=== PATIENT | female | born 1965 | race Caucasian/White ===

== ENCOUNTER → 2020-05-18 14:09 | Outpatient (BNVA) | payer SELFPAY | PROVIDERS: Family Provider Family Medicine; Visit Provider Nurse Practitioner Family | DX: Z20.828 Contact with and (suspected) exposure to other viral communicable diseases (principal) | CPT/HCPCS: 87635 ==

== ENCOUNTER 2021-10-31 10:22 | Emergency (ER) | payer SELFPAY ==
--- NOTE | 2021-10-31 10:30 | W.ED.NAVMDI ---
HPI - Nausea/Vomiting/Diarrhea General: Chief complaint: Nausea/Vomiting/Diarrhea Stated complaint: n/v Time Seen by Provider: 10/31/21 10:26 Source: patient Mode of arrival: EMS Limitations: no limitations History of Present Illness: 56-year-old female presents emergency room with a report of a fever up to 1035 for the last several days however when she arrived here temp is 98 5. EMS reported that she laughed when they picked her up and had some defecation in her clothing. She is very nonspecific with her complaints states she hurts all over that everything is wrong she reports some nausea and vomiting as well as some loose stools she denies any medication melena hematemesis coffee-ground emesis. She has been on productive cough and reports some wheezing. She reports she does have COPD. MD elicited complaint: nausea and vomiting Onset (ago): day(s) Description of vomiting: food contents and watery Description of diarrhea: lose Associated nausea: Yes Associated abdominal pain: Yes Location of pain: Epigastric Severity: moderate Exacerbating factors: none Relieving factors: none Associated symtoms: Reports cough, nausea, numbness, palpitations, rash, short of breath and syncope; Denies altered mental status, anxiety, bloating, change in vision, chest pain, diaphoresis, decreased urine output, dizziness, dysuria, epistaxis, fatigue, fecal incontinence, fevers/chills, headache(s), anorexia, malaise, myalgias, tenesmus, tinnitus or weakness Review of Systems Const: Denies: fatigue, malaise or diaphoresis Eyes: Denies: change in vision ENMT: Denies: tinnitus or epistaxis Card: Reports: palpitations and syncope; Denies: chest pain Resp: Denies: dyspnea, productive cough or non-productive cough GI: Reports: nausea; Denies: bloating or fecal incontinence : Denies: dysuria Skin/Breast: Denies: rash or pruritus Neuro: Denies: headache(s) or dizziness Psych: Denies: anxiety PFS ED PFSH: Medical History (Updated 10/31/21 @ 13:05 by Carroll Mckeon DO) COPD (chronic obstructive pulmonary disease) Social History (Updated 10/31/21 @ 13:05 by Carroll Mckeon DO) Smoking and tobacco status: former smoker Physical Exam Const: EXAM LIMITATIONS: no altered mental status GENERAL APPEARANCE: cooperative and comfortable ORIENTATION/CONSCIOUSNESS: Yes awake, Yes oriented to person, Yes oriented to place and Yes oriented to time HENMT: COMMON NORMALS: normocephalic, atraumatic, hearing grossly normal bilaterally, external ears normal, EAC's normal, TM's normal bilaterally, Normal nasal mucous membranes and turbinates present, moist oral mucous membranes and oropharynx normal HEAD & SCALP: normocephalic and atraumatic NOSE: Normal nasal mucous membranes and turbinates present EXTERNAL EAR: Yes external ears normal EXTERNAL AUDITORY CANAL: EAC's normal TYMPANIC MEMBRANE: TM's normal bilaterally Eye: COMMON NORMALS: Equal, round and reactive pupils present, EOMs intact bilaterally, conjunctivae normal and no scleral icterus CONJUNCTIVA: Yes conjunctivae normal PUPIL: Yes Equal, round and reactive pupils present Neck/C-Spine: COMMON NORMALS: full ROM, no lymphadenopathy, supple and no JVD Lymph: LYMPHATIC: no lymphadenopathy noted and no lymphedema noted Resp: AUSCULTATION: rhonchi and wheezes Cardio: COMMON NORMALS: no JVD, regular rate, regular rhythm and No murmurs present (Cardio) RATE: regular rate RHYTHM: regular rhythm GI: COMMON NORMALS: Soft to palpation and No hepatosplenomegaly present AUSCULTATION: Yes normoactive bowel sounds PALPATION: Yes Soft to palpation, No Tenderness to palpation present (GI), No Guarding due to palpation present (GI) and Yes No hepatosplenomegaly present Extremity: COMMON NORMALS: normal to inspection, capillary refill normal, no clubbing, cyanosis or edema, no calf tenderness and no pedal edema Neuro: SENSORIUM/ORIENTATION: Yes oriented to person, Yes oriented to place and Yes oriented to time Skin: COMMON NORMALS: no rashes or lesions noted GENERAL SKIN EXAM: no rashes or lesions noted Course Vital Signs: Vital signs: Vital Signs Temperature 98.5 F 10/31/21 10:33 Pulse Rate 88 10/31/21 10:33 Respiratory Rate 18 10/31/21 10:33 Blood Pressure 97/73 10/31/21 10:33 MDM - Nausea/Vomiting/Diarrhea Medical Decision Making Labs and imaging reviewed. Patient sleeping comfortably after receiving fluid she is feeling somewhat better. I think she may have some mild exacerbation of her COPD and some gastroenteritis we will put her receive some Phenergan as needed clear liquid diet give her albuterol I did not give her any steroid taper with her stomach upset I am afraid the steroid taper would actually exacerbate things return if she has problem particular if she develops fever at this time she does not have a white count or left shift or fever just observe. Medical Records I reviewed the patient's medical records. Lab Data I reviewed the patient's lab results. : 10/31/21 10:45 10/31/21 10:45 Radiology Impressions Abdomen/Pelvis CT 10/31/21 10:50 IMPRESSION: 1. No acute abnormality. 2. Fatty liver. Chest X-Ray 10/31/21 10:50 IMPRESSION: No acute findings. Laboratory Results WBC 3.3 10^3/uL (4.0-10.0) L 10/31/21 10:45 RBC 4.57 10^6/uL (4.1-5.3) 10/31/21 10:45 Hgb 14.5 g/dL (11.5-15.3) 10/31/21 10:45 Hct 42.0 % (37.0-47.0) 10/31/21 10:45 MCV 91.9 fl (81-99) 10/31/21 10:45 MCH 31.7 pg (28.0-34.0) 10/31/21 10:45 MCHC 34.5 g/dL (30.0-36.0) 10/31/21 10:45 RDW 12.1 % (12.1-15.1) 10/31/21 10:45 Plt Count 116 10^3/cmm (130-400) L 10/31/21 10:45 MPV 10.1 fL (7.4-10.4) 10/31/21 10:45 Neut % (Auto) 61.3 % 10/31/21 10:45 Lymph % (Auto) 33.5 % 10/31/21 10:45 [place] % (Auto) 4.0 % 10/31/21 10:45 Eos % (Auto) 0.0 % 10/31/21 10:45 Baso % (Auto) 0.9 % 10/31/21 10:45 Neut # (Auto) 1.99 10^3/uL (1.8-7.7) 10/31/21 10:45 Lymph # (Auto) 1.1 10^3/uL (0.8-4.8) 10/31/21 10:45 [place] # (Auto) 0.1 10^3/uL (0.2-0.9) L 10/31/21 10:45 Eos # (Auto) 0.0 10^3/uL (0.0-0.8) 10/31/21 10:45 Baso # (Auto) 0.0 10^3/uL (0.0-0.1) 10/31/21 10:45 Nucleated RBC % (auto) 0 % 10/31/21 10:45 Nucleated RBCs # 0.0 /100WBC 10/31/21 10:45 Sodium 137 mmol/L (136-145) 10/31/21 10:45 Potassium 3.6 mmol/L (3.5-5.1) 10/31/21 10:45 Chloride 100 mmol/L (98-107) 10/31/21 10:45 Carbon Dioxide 24 mmol/L (22-29) 10/31/21 10:45 Anion Gap 16.6 (5-19) 10/31/21 10:45 BUN 16 mg/dL (6-20) 10/31/21 10:45 Creatinine 1.0 mg/dL (0.5-0.9) H 10/31/21 10:45 GFR Calculation 57.6 mL/min (90-130) L 10/31/21 10:45 Glucose 125 mg/dL (65-115) H 10/31/21 10:45 Calculated Osmolality 287 mOsm/kg (285-295) 10/31/21 10:45 Lactic Acid 1.7 mmol/L (0.5-2.2) 10/31/21 10:45 Calcium 8.4 mg/dL (8.5-10.5) L 10/31/21 10:45 Total Bilirubin 0.3 mg/dL (0.15-1.2) 10/31/21 10:45 AST 91 U/L (0-32) H 10/31/21 10:45 ALT 65 U/L (0-33) H 10/31/21 10:45 Alkaline Phosphatase 127 IU/L (35-105) H 10/31/21 10:45 Total Protein 6.7 g/dL (6.6-8.7) 10/31/21 10:45 Albumin 3.8 g/dL (3.5-5.2) 10/31/21 10:45 Globulin 2.9 g/dL (1.3-4.6) 10/31/21 10:45 Lipase 20 U/L (13-60) 10/31/21 10:45 Urine Color Dark yellow (Yellow) 10/31/21 11:10 Urine Appearance Cloudy (CLEAR) 10/31/21 11:10 Urine pH 5 (5-7) 10/31/21 11:10 Ur Specific [place] 1.020 (1.005-1.030) 10/31/21 11:10 Urine Protein 1+ (Negative) H 10/31/21 11:10 Urine Glucose (UA) Norm (Normal) 10/31/21 11:10 Urine Ketones Negative (Negative) 10/31/21 11:10 Urine Blood 2+ (Negative) H 10/31/21 11:10 Urine Nitrate Negative (Negative) 10/31/21 11:10 Urine Bilirubin Neg (Negative) 10/31/21 11:10 Urine Urobilinogen 1 mg/dL (Negative) H 10/31/21 11:10 Ur Leukocyte Esterase Negative (Negative) 10/31/21 11:10 Urine RBC 0-4 /hpf (0-2) H 10/31/21 11:10 Urine WBC 0-4 /hpf (0-5) H 10/31/21 11:10 Ur Squamous Epith Cells 10-15 /hpf (0-5) H 10/31/21 11:10 Amorphous Sediment Not Reportable 10/31/21 11:10 Urine Bacteria 1+ /hpf (NONE) H 10/31/21 11:10 Urine Mucus 1+ /hpf 10/31/21 11:10 Discharge Plan Discharge Patient Disposition: Home Clinical Impression: Gastroenteritis, COPD (chronic obstructive pulmonary disease) Condition: Stable Prescriptions: New promethazine 25 mg tablet 25 mg PO Q6H PRN (Reason: nausea and vomiting) Qty: 20 0RF albuterol sulfate 90 mcg/actuation HFA aerosol inhaler 2 inh INHALATION Q4H PRN (Reason: shortness of breath or wheezing) Qty: 18 0RF Discharge Orders: Discharge ED (Routine); Ordered 10/31/21 Ordered By: Carroll Mckeon Referrals: Antonino Lindsay MD [Physician] - Discharge Diet: Clear Liquid Discharge Activity: Increase activity as tolerated Patient Instructions: Opioid Safety Activity Restrictions/Additional Instructions: Follow-up with your primary care doctor if not improving. Return if you have significant worsening. Coding Level of Care Code ED Electronic Controls Repairer Supervisor for [place] Pagan
[2021-10-31 10:33] VITALS: BP 97/73; PULSE 88; RESP 18; TEMP 36.9; BMI 26.2
[2021-10-31] MEDS: sodium chloride 0.9% 1,000 ML 999 ML IV (10:39)
--- NOTE | 2021-10-31 10:50 | XRR_ITS ---
PROCEDURE INFORMATION: Exam: XR Chest Exam date and time: 10/31/2021 10:55 AM Age: 56 years old Clinical indication: Fever and shortness of breath; Additional info: Dyspnea/cough TECHNIQUE: Imaging protocol: XR of the chest. Views: 1 view. COMPARISON: CR Chest 1 [place] [id number] 05/16/2017 11:02 PM FINDINGS: Lungs: Unremarkable. No consolidation. Pleural spaces: Unremarkable. No pleural effusion. No pneumothorax. Heart/Mediastinum: Unremarkable. No cardiomegaly. Bones/joints: Unremarkable. XR/XR chest 1V portable [id number] IMPRESSION: No acute findings.
--- NOTE | 2021-10-31 10:50 | CTR_ITS ---
PROCEDURE INFORMATION: Exam: CT Abdomen And Pelvis Without Contrast Exam date and time: 10/31/2021 11:23 AM Age: 56 years old Clinical indication: Abdominal pain; Generalized; Prior surgery; Surgery date: 6+ months; Surgery type: Partial hyster TECHNIQUE: Imaging protocol: Computed tomography of the abdomen and pelvis without contrast. Radiation optimization: All CT scans at this facility use at least one of these dose optimization techniques: automated exposure control; mA and/or kV adjustment per patient size (includes targeted exams where dose is matched to clinical indication); or iterative reconstruction. COMPARISON: CR (CHEST, ) 10/31/2021 10:55 AM RADIATION DOSE METRICS: Total DLP (mGy-cm): 870.18 FINDINGS: Liver: Fatty liver. Gallbladder and bile ducts: Normal. No calcified stones. No ductal dilation. Pancreas: Normal. No ductal dilation. Spleen: Normal. No splenomegaly. Adrenal glands: Normal. No mass. Kidneys and ureters: There are 2 benign-appearing cysts in the right kidney with the larger 1 measuring 2 cm in diameter. There is no hydronephrosis. There is no renal calculus. Stomach and bowel: Unremarkable. No obstruction. No mucosal thickening. Appendix: No evidence of appendicitis. Intraperitoneal space: There is no free fluid and no free air. Vasculature: There is mild calcification of the abdominal aorta. There is no abdominal aortic aneurysm. Lymph nodes: Unremarkable. No enlarged lymph nodes. Urinary bladder: Unremarkable as visualized. Reproductive: Hysterectomy. No pelvic masses. Bones/joints: Chronic degenerative changes are present in the spine especially at the L3-L4 level. Soft tissues: There is a small uncomplicated fat containing umbilical hernia. CT/CT abdomen pelvis con [id number] IMPRESSION: 1. No acute abnormality. 2. Fatty liver.
[2021-10-31 10:59] LABS: Basophils % 0.9 %; Hemoglobin 14.5 g/dL (11.5-15.3); Lymphocytes # 1.1 10^3/uL (0.8-4.8); Lymphocytes % 33.5 %; Mean Corpuscular HGB Conc 34.5 g/dL (30.0-36.0); Mean Corpuscular Hemoglobin 31.7 pg (28.0-34.0); Mean Corpuscular Volume 91.9 fl (81-99); Mean Platelet Volume 10.1 fL (7.4-10.4); Monocytes # 0.1 10^3/uL (0.2-0.9); Neutrophils # 1.99 10^3/uL (1.8-7.7); Neutrophils % 61.3 %; Nucleated Red Blood Cells % 0 %; Platelet Count 116 10^3/cmm (130-400); Red Blood Count 4.57 10^6/uL (4.1-5.3); Red Cell Distribution Width 12.1 % (12.1-15.1); White Blood Count 3.3 10^3/uL (4.0-10.0)
[2021-10-31 11:18] LABS: Alanine Aminotransferase 65 U/L (0-33); Albumin Level 3.8 g/dL (3.5-5.2); Alkaline Phosphatase 127 IU/L (35-105); Anion Gap 16.6 (5-19); Aspartate Amino Transferase 91 U/L (0-32); Blood Urea Nitrogen 16 mg/dL (6-20); Calcium 8.4 mg/dL (8.5-10.5); Carbon Dioxide 24 mmol/L (22-29); Chloride 100 mmol/L (98-107); Globulin 2.9 g/dL (1.3-4.6); Glomerular Filtration Rate 57.6 mL/min (90-130); Glucose 125 mg/dL (65-115); Lactic Sepsis W/Reflex 1.7 mmol/L (0.5-2.2); Lipase 20 U/L (13-60); Osmolality Calculated 287 mOsm/kg (285-295); Potassium 3.6 mmol/L (3.5-5.1); Sodium 137 mmol/L (136-145); Total Bilirubin 0.3 mg/dL (0.15-1.2); Total Protein 6.7 g/dL (6.6-8.7)
[2021-10-31 11:31] LABS: Slide Review Slide Review Perform
[2021-10-31 11:35] LABS: Add Urine Microscopic? YES; Bilirubin Urine Neg (Negative); Blood Urine 2+ (Negative); Glucose Urine UA Norm (Normal); Ketones Urine Negative (Negative); Leukocyte Esterase Urine Negative (Negative); Nitrate Urine Negative (Negative); Protein Urine 1+ (Negative); Urine Appearance Cloudy (CLEAR); Urine Color Dark Yellow (Yellow); Urobilinogen Urine 1 mg/dL (Negative); pH Urine 5 (5-7)
[2021-10-31 11:36] LABS: Add Urine Culture? No; Bacteria Urine 1+ /hpf; Mucus Urine 1+ /hpf; RBC Urine 0-4 /hpf (0-2); WBC Urine 0-4 /hpf (0-5)
[2021-10-31] MEDS: ipratropium-albuterol 3 mL Neb INHALATION (13:05)
[2021-10-31 13:06] VITALS: PULSE 88; RESP 18; O2SAT 95
== END 2021-10-31 13:32 | disposition home or self-care (01) ==
PROVIDERS: Physician Assistant; Emergency Provider Family Medicine
DX: K52.9 Noninfective gastroenteritis and colitis, unspecified (principal); J44.9 Chronic obstructive pulmonary disease, unspecified; Z87.891 Personal history of nicotine dependence
CPT/HCPCS: 71045; 74176; 80053; 81001; 83605; 83690; 85025; 94640; 96360; 99284; C1751; J7030

== ENCOUNTER 2021-12-05 16:54 | Emergency (ER) | payer SELFPAY ==
[2021-12-05 16:55] VITALS: BP 110/70; PULSE 101; RESP 20; O2SAT 96
--- NOTE | 2021-12-05 17:24 | XRR_ITS ---
PROCEDURE INFORMATION: Exam: XR Left Ribs with PA Chest Exam date and time: 12/05/2021 6:06 PM Age: 56 years old Clinical indication: Injury or trauma; Fall; Rib area, left side; Blunt trauma; Additional info: Trauma/injury TECHNIQUE: Imaging protocol: Radiologic exam of the Left ribs with PA chest. Views: 3 views COMPARISON: CR (CHEST, ) 10/31/2021 10:55 AM FINDINGS: Lungs: Unremarkable. No consolidation. Pleural spaces: Unremarkable. No pleural effusion. No pneumothorax. Heart/Mediastinum: Unremarkable. No cardiomegaly. Bones/joints: Unremarkable. XR/XR ribs LT mn 3V w CXR1V [id number] IMPRESSION: No acute findings.
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
--- NOTE | 2021-12-05 19:11 | PC.NURSE ---
REPORT GIVEN TO JESÚS MCCAULEY ASSUMED CARE.
[2021-12-05 19:27] VITALS: RESP 20
[2021-12-05] MEDS: HYDROmorphone 1 mg/mL INJ 1 mL 0.5 MG IVP (19:27)
[2021-12-05 19:34] VITALS: BP 132/100; PULSE 89; RESP 20; O2SAT 95
== END 2021-12-05 19:35 | disposition home or self-care (01) ==
PROVIDERS: Emergency Provider Physician Assistant
DX: S20.222A Contusion of left back wall of thorax, initial encounter (principal); J44.9 Chronic obstructive pulmonary disease, unspecified; Z87.891 Personal history of nicotine dependence; V87.8XXA Person injured in other specified noncollision transport accidents involving motor vehicle (traffic), initial encounter
CPT/HCPCS: 71101; 72128; 96374; 99285; J1170

== ENCOUNTER 2022-06-16 10:07 | Outpatient (CLI) | payer OTHER, SELFPAY | END 2022-06-16 10:08 | disposition home or self-care (01) | LOC: RT 10:10 | PROVIDERS: Visit Provider Emergency Medicine | DX: Z02.71 Encounter for disability determination (principal) | CPT/HCPCS: 94060; 94726; 94729; J7613 ==

== ENCOUNTER 2023-11-20 02:37 | Inpatient (IN) | payer MEDICARE, SELFPAY ==
[2023-11-20] VITALS (8 sets, daily range): BP systolic 107–146; BP diastolic 72–112; PULSE 78–110; RESP 13–18; TEMP 35.3–36.9; O2SAT 90–99; BMI 21.4
--- NOTE | 2023-11-20 02:41 | ECG_ITS ---
[facility] Test Date: 2023-11-20 Pat Name: Tiara Wilkins Department: Room: Gender: Female Cask Maker: : 1965 Requested By: Cornelius Elaine Order Number: [id number] You MD: Carter Milan M.D. Measurements Intervals [place] Rate: 80 P: 71 AR: 132 QRS: 12 QRSD: 93 T: 52 QT: 449 QTc: 520 Interpretive Statements SINUS RHYTHM WITH SINUS ARRHYTHMIA SEPTAL MYOCARDIAL INFARCTION , OF INDETERMINATE AGE [40+ ms Q WAVE IN V1/V2] No previous ECG available for comparison Electronically Signed On 11-21-2023 21:47:06 CDT by Carter Milan M.D. [email or web address]
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
[2023-11-20 02:50] LABS: Basophils # 0.1 10^3/uL (0.0-0.1); Basophils % 0.6 %; Eosinophils # 0.2 10^3/uL (0.0-0.8); Eosinophils % 1.7 %; Hematocrit 41.4 % (36-47); Lymphocytes # 6.7 10^3/uL (0.8-4.8); Lymphocytes % 48.3 %; Mean Corpuscular HGB Conc 32.6 g/dL (30-55); Mean Corpuscular Hemoglobin 31.5 pg (27-33); Mean Corpuscular Volume 96.5 fl (85-98); Mean Platelet Volume 9.1 fL (7.4-10.4); Monocytes # 1.1 10^3/uL (0.2-0.9); Monocytes % 7.8 %; Neutrophils # 5.77 10^3/uL (1.8-7.7); Neutrophils % 41.5 %; Nucleated Red Blood Cells % 0 %; Platelet Count 296 10^3/cmm (157-399); Red Blood Count 4.29 10^6/uL (3.85-5.65); Red Cell Distribution Width 12.1 % (12.1-15.1)
[2023-11-20] MEDS: sodium chloride 0.9% 1,000 ML 999 ML IV ×2 (02:54→03:21)
--- NOTE | 2023-11-20 02:54 | ED_ITS ---
Documented by User: Cornelius Elaine MD 11/20/23 04:18 HPI - General Adult 2 General: Chief complaint: Altered Mental Status Stated complaint: MHE Time Seen by Provider: 11/20/23 02:42 Source: EMS Mode of arrival: EMS Limitations: altered mental status History of Present Illness: 58-year-old female who please was called the residents and I most the history is from EMS and police they state that patient has a history of psychiatric issues she is also an alcoholic. Per EMS patient had been psychotic per her and hearing voices and was tearing up the house she does have a history of COPD as well. EMS states that they given her 2 mg Versed and 2 mg of Ativan to calm her down patient is unresponsive currently likely from the Versed she will not even arouse to sternal rubs. They just recently moved here have no medical history on her here her is not here at this time as he cannot get his truck started is here now at this time is able speak to him he states that she has been having increasing hallucinations over the last few months. He states that she has been believing that people been in their house and out to get her Review of Systems 2 General: Reports: ROS unobtainable due to mental status PFSH ED 2 PFSH: Medical History COPD (chronic obstructive pulmonary disease) Social History (System 11/20/23 @ 13:28 by Makeda De La Fuente) Smoking and tobacco/nicotine status: former use of tobacco/nicotine Physical Exam 2 Const: COMMON NORMALS: negative for patient oriented x3 HENMT: COMMON NORMALS: normocephalic and atraumatic HEAD & SCALP: n ormocephalic and atraumatic Eye: COMMON NORMALS: Equal, round and reactive pupils present and EOMs intact bilaterally PUPIL: Yes Equal, round and reactive pupils present Neck/C-Spine: COMMON NORMALS: full ROM and supple Chest: COMMONS NORMALS: normal inspection of the chest and normal palpation of entire chest wall Resp: COMMON NORMALS: normal respiratory effort, No retractions, No use of accessory muscles and clear to auscultation bilaterally AUSCULTATION: clear to auscultation bilaterally Cardio: COMMON NORMALS: regular rate, regular rhythm and No murmurs present (Cardio) RATE: regular rate RHYTHM: regular rhythm GI: COMMON NORMALS: Normal to inspection, nondistended, normoactive bowel sounds present, Soft to palpation and no masses PALPATION: Yes Soft to palpation Extremity: COMMON NORMALS: normal to inspection and full ROM Neuro: COMMON NORMALS: negative for patient oriented x3 Psych: COMMON NORMALS: negative for mental status grossly normal Skin: COMMON NORMALS: no rashes or lesions noted and no wounds GENERAL SKIN EXAM: no rashes or lesions noted Course 2 Vital Signs: Vital signs: Vital Signs Temperature 95.5 F L 11/20/23 02:38 Pulse Rate 92 11/20/23 12:03 Respiratory Rate 13 11/20/23 04:00 Blood Pressure 107/72 11/20/23 05:15 Pulse Oximetry 98 11/20/23 12:03 Oxygen Delivery Me thod Room Air 11/20/23 12:03 Oxygen Flow Rate 2 11/20/23 03:32 [facility] - General Adult Medical Records I reviewed the patient's medical records. Lab Data I reviewed the patient's lab results. 11/20/23 02:44 11/20/23 02:44 Radiology Impressions Chest X-Ray 11/20/23 02:41 IMPRESSION: No acute findings. Head CT 11/20/23 02:41 IMPRESSION: No acute intracranial abnormality. Laboratory Results WBC 13.90 10^3/uL (3.29-11.43) H 11/20/23 02:44 RBC 4.29 10^6/uL (3.85-5.65) 11/20/23 02:44 Hgb 13.50 g/dL (11.27-16.99) 11/20/23 02:44 Hct 41.4 % (36-47) 11/20/23 02:44 MCV 96.5 fl (85-98) 11/20/23 02:44 MCH 31.5 pg (27-33) 11/20/23 02:44 MCHC 32.6 g/dL (30-55) 11/20/23 02:44 RDW 12.1 % (12.1-15.1) 11/20/23 02:44 Plt Count 296 10^3/cmm (157-399) 11/20/23 02:44 MPV 9.1 fL (7.4-10.4) 11/20/23 02:44 Neut % (Auto) 41.5 % 11/20/23 02:44 Lymph % (Auto) 48.3 % 11/20/23 02:44 Luce % (Auto) 7.8 % 11/20/23 02:44 Eos % (Auto) 1.7 % 11/20/23 02:44 Baso % (Auto) 0.6 % 11/20/23 02:44 Neut # (Auto) 5.77 10^3/uL (1.8-7.7) 11/20/23 02:44 Lymph # (Auto) 6.7 10^3/uL (0.8-4.8) H 11/20/23 02:44 Luce # (Auto) 1.1 10^3/uL (0.2-0.9) H 11/20/23 02:44 Eos # (Auto) 0.2 10^3/uL (0.0-0.8) 11/20/23 02:44 Baso # (Auto) 0.1 10^3/uL (0.0-0.1) 11/20/23 02:44 Nucleated RBC % (auto) 0 % 11/20/23 02:44 Nucleated RBCs # 0.0 /100WBC 11/20/23 02:44 Specimen Type Arterial 11/20/23 03:00 Sample Site Radial, left 11/20/23 03:00 ABG pH 7.30 (7.35-7.45) L 11/20/23 03:00 ABG pCO2 47.3 mmHg (35-45) H 11/20/23 03:00 ABG pO2 62.0 mmHg (80.0-100.0) L 11/20/23 03:00 ABG HCO3 23.0 mmol/L (22-26) 11/20/23 03:00 ABG Base Excess -3.7 mmol/L (-2.0-2.0) L 11/20/23 03:00 Eric Test Pos 11/20/23 03:00 Hematocrit 38.2 % (37-47) 11/20/23 03:00 O2 Delivery Device Nc 11/20/23 03:00 O2 Liters/Min 2.0 % 11/20/23 03:00 Wireless Store Manager ID [email or web address] 11/20/23 03:00 Sodium 143 mmol/L (136-145) 11/20/23 02:44 Potassium 3.5 mmol/L (3.5-5.1) 11/20/23 02:44 Chloride 102 mmol/L (98-107) 11/20/23 02:44 Carbon Dioxide 25 mmol/L (22-29) 11/20/23 02:44 Anion Gap 19.5 (5-19) H 11/20/23 02:44 BUN 22 mg/dL (6-20) H 11/20/23 02:44 Creatinine 0.9 mg/dL (0.5-0.9) 11/20/23 02:44 GFR Calculation 64.5 mL/min (90-130) L 11/20/23 02:44 Glucose 60 mg/dL (65-115) L 11/20/23 02:44 POC Glucose 64 mg/dL (70-110) L 11/20/23 16:31 Calculated Osmolality 297 mOsm/kg (285-295) H 11/20/23 02:44 Lactic Acid 2.6 mmol/L (0.5-2.2) H 11/20/23 02:44 Lactic Acid (Sepsis) 2.2 mmol/L (0.5-2.2) 11/20/23 05:36 Calcium 9.0 mg/dL (8.5-10.5) 11/20/23 02:44 Total Bilirubin 0.4 mg/dL (0.15-1.2) 11/20/23 02:44 AST 42 U/L (0-32) H 11/20/23 02:44 ALT 24 U/L (0-33) 11/20/23 02:44 Alkaline Phosphatase 124 U/L (35-105) H 11/20/23 02:44 Ammonia 44 umol/L (11-51) 11/20/23 02:44 C-Reactive Protein 13.5 mg/L (0.0-4.9) H 11/20/23 02:44 Total Protein 7.9 g/dL (6.6-8.7) 11/20/23 02:44 Albumin 4.6 g/dL (3.5-5.2) 11/20/23 02:44 Globulin 3.3 g/dL (1.3-4.6) 11/20/23 02:44 TSH 5.61 uIU/mL (0.27-4.20) H 11/20/23 02:44 Urine Color Yellow (Yellow) 11/20/23 02:55 Urine Appearance Cloudy (CLEAR) A 11/20/23 02:55 Urine pH 5 (5-7) 11/20/23 02:55 Ur Specific [place] 1.030 (1.005-1.030) 11/20/23 02:55 Urine Protein 1+ (Negative) H 11/20/23 02:55 Urine Glucose (UA) Norm (Normal) 11/20/23 02:55 Urine Ketones Negative (Negative) 11/20/23 02:55 Urine Blood Neg (Negative) 11/20/23 02:55 Urine Nitrate Negative (Negative) 11/20/23 02:55 Urine Bilirubin Neg (Negative) 11/20/23 02:55 Urine Urobilinogen Neg mg/dL (Negative) 11/20/23 02:55 Ur Leukocyte Esterase Negative (Negative) 11/20/23 02:55 Urine RBC 0-4 /hpf (0-2) H 11/20/23 02:55 Urine WBC 0-4 /hpf (0-5) H 11/20/23 02:55 Ur Squamous Epith Cells 0-4 /hpf (0-5) H 11/20/23 02:55 Calcium Oxalate Crystal Rare /hpf 11/20/23 02:55 Amorphous Sediment Trace /hpf 11/20/23 02:55 Urine Bacteria 2+ /hpf (NONE) H 11/20/23 02:55 Hyaline Casts 15-25 /lpf H 11/20/23 02:55 Urine Mucus 1+ /hpf 11/20/23 02:55 Salicylates < 0.3 mg/dL (3-10) L 11/20/23 02:44 Urine Opiates Screen Positive ng/mL (Negative) H 11/20/23 02:55 Acetaminophen < 5.0 ug/mL (10-30) L 11/20/23 02:44 Ur Barbiturates Screen Negative ng/mL (Negative) 11/20/23 02:55 Ur Phencyclidine Scrn Negative ng/mL (Negative) 11/20/23 02:55 Ur Amphetamines Screen Positive ng/mL (Negative) H 11/20/23 02:55 U Benzodiazepines Scrn Negative ng/mL (Negative) 11/20/23 02:55 Urine Cocaine Screen Negative ng/mL (Negative) 11/20/23 02:55 U Marijuana (THC) Screen Negative ng/mL (Negative) 11/20/23 02:55 Ethyl Alcohol 185 mg/dL (0-10) H 11/20/23 02:44 Influenza Type A Ag negative (Negative) 11/20/23 03:33 Influenza Type B Ag negative (Negative) 11/20/23 03:33 RSV Antigen Negative (Negative) 11/20/23 03:33 SARS-CoV-2 Ag (Rapid) negative (Negative) 11/20/23 03:33 All radiology interpretation(s) finalized by discharge EKG Data EKG 1: I personally reviewed and interpreted this EKG as follows: EKG interpretation date: 11/20/23 EKG interpretation time: 03:42 Interpretation: nsr hr [address] or t wave abnormalities qrs 93 qtc 485 Computer generated interpretation: Chest X-Ray 11/20/23 02:41 IMPRESSION: No acute findings. Head CT 11/20/23 02:41 IMPRESSION: No acute intracranial abnormality. Discharge Plan Discharge Patient Disposition: Admitted As Inpatient Clinical Impression: Drug-induced psychotic disorder, COPD (chronic obstructive pulmonary disease) Condition: Stable Prescriptions: No Action promethazine 25 mg tablet 25 mg PO Q6H PRN (Reason: nausea and vomiting) Qty: 20 0RF albuterol sulfate 90 mcg/actuation HFA aerosol inhaler 2 inh INHALATION Q4H PRN (Reason: shortness of breath or wheezing) Qty: 18 0RF Unable to Assess Patient Instructions: Altered Mental Status (ED) Coding Level of Care Code ED Geotechnical Operating Engineer for Chg Fwd Documented by User: Carroll Mckeon DO 11/20/23 17:43 HPI - General Adult 2 General: Chief complaint: Altered Mental Status Stated complaint: MHE Time Seen by Provider: 11/20/23 02:42 PFSH ED 2 PFSH: Medical History COPD (chronic obstructive pulmonary disease) Social History (System 11/20/23 @ 13:28 by Makeda De La Fuente) Smoking and tobacco/nicotine status: former use of tobacco/nicotine Course 2 Vital Signs: Vital signs: Vital Signs Temperature 95.5 F L 11/20/23 02:38 Pulse Rate 92 11/20/23 12:03 Respiratory Rate 13 11/20/23 04:00 Blood Pressure 107/72 11/20/23 05:15 Pulse Oximetry 98 11/20/23 12:03 Oxygen Delivery Me thod Room Air 11/20/23 12:03 Oxygen Flow Rate 2 11/20/23 03:32 MDM - General Adult Medical Decision Making November 20 1519 Care assumed at change of shift we are still working on placement. Patient went to avoid straining that she had prolapse of rectum this is easily reduced. She been given Ativan prior to reducing it because of some moderate anxiety tolerated very well. Continue to work on placement. 1740 -we continue to look for placement or unable to find placement for her we have several facilities that are reviewing her chart. In the same timeframe her warehouse assistant called set a bed has become available by discharge in NPU. I discussed case Dr. Erlinda sibley after for admission. Lab Data 11/20/23 02:44 11/20/23 02:44 Radiology Impressions Chest X-Ray 11/20/23 02:41 IMPRESSION: No acute findings. Head CT 11/20/23 02:41 IMPRESSION: No acute intracranial abnormality. Laboratory Results WBC 13.90 10^3/uL (3.29-11.43) H 11/20/23 02:44 RBC 4.29 10^6/uL (3.85-5.65) 11/20/23 02:44 Hgb 13.50 g/dL (11.27-16.99) 11/20/23 02:44 Hct 41.4 % (36-47) 11/20/23 02:44 MCV 96.5 fl (85-98) 11/20/23 02:44 MCH 31.5 pg (27-33) 11/20/23 02:44 MCHC 32.6 g/dL (30-55) 11/20/23 02:44 RDW 12.1 % (12.1-15.1) 11/20/23 02:44 Plt Count 296 10^3/cmm (157-399) 11/20/23 02:44 MPV 9.1 fL (7.4-10.4) 11/20/23 02:44 Neut % (Auto) 41.5 % 11/20/23 02:44 Lymph % (Auto) 48.3 % 11/20/23 02:44 Luce % (Auto) 7.8 % 11/20/23 02:44 Eos % (Auto) 1.7 % 11/20/23 02:44 Baso % (Auto) 0.6 % 11/20/23 02:44 Neut # (Auto) 5.77 10^3/uL (1.8-7.7) 11/20/23 02:44 Lymph # (Auto) 6.7 10^3/uL (0.8-4.8) H 11/20/23 02:44 Luce # (Auto) 1.1 10^3/uL (0.2-0.9) H 11/20/23 02:44 Eos # (Auto) 0.2 10^3/uL (0.0-0.8) 11/20/23 02:44 Baso # (Auto) 0.1 10^3/uL (0.0-0.1) 11/20/23 02:44 Nucleated RBC % (auto) 0 % 11/20/23 02:44 Nucleated RBCs # 0.0 /100WBC 11/20/23 02:44 Specimen Type Arterial 11/20/23 03:00 Sample Site Radial, left 11/20/23 03:00 ABG pH 7.30 (7.35-7.45) L 11/20/23 03:00 ABG pCO2 47.3 mmHg (35-45) H 11/20/23 03:00 ABG pO2 62.0 mmHg (80.0-100.0) L 11/20/23 03:00 ABG HCO3 23.0 mmol/L (22-26) 11/20/23 03:00 ABG Base Excess -3.7 mmol/L (-2.0-2.0) L 11/20/23 03:00 Eric Test Pos 11/20/23 03:00 Hematocrit 38.2 % (37-47) 11/20/23 03:00 O2 Delivery Device Nc 11/20/23 03:00 O2 Liters/Min 2.0 % 11/20/23 03:00 Wireless Store Manager ID [email or web address] 11/20/23 03:00 Sodium 143 mmol/L (136-145) 11/20/23 02:44 Potassium 3.5 mmol/L (3.5-5.1) 11/20/23 02:44 Chloride 102 mmol/L (98-107) 11/20/23 02:44 Carbon Dioxide 25 mmol/L (22-29) 11/20/23 02:44 Anion Gap 19.5 (5-19) H 11/20/23 02:44 BUN 22 mg/dL (6-20) H 11/20/23 02:44 Creatinine 0.9 mg/dL (0.5-0.9) 11/20/23 02:44 GFR Calculation 64.5 mL/min (90-130) L 11/20/23 02:44 Glucose 60 mg/dL (65-115) L 11/20/23 02:44 POC Glucose 64 mg/dL (70-110) L 11/20/23 16:31 Calculated Osmolality 297 mOsm/kg (285-295) H 11/20/23 02:44 Lactic Acid 2.6 mmol/L (0.5-2.2) H 11/20/23 02:44 Lactic Acid (Sepsis) 2.2 mmol/L (0.5-2.2) 11/20/23 05:36 Calcium 9.0 mg/dL (8.5-10.5) 11/20/23 02:44 Total Bilirubin 0.4 mg/dL (0.15-1.2) 11/20/23 02:44 AST 42 U/L (0-32) H 11/20/23 02:44 ALT 24 U/L (0-33) 11/20/23 02:44 Alkaline Phosphatase 124 U/L (35-105) H 11/20/23 02:44 Ammonia 44 umol/L (11-51) 11/20/23 02:44 C-Reactive Protein 13.5 mg/L (0.0-4.9) H 11/20/23 02:44 Total Protein 7.9 g/dL (6.6-8.7) 11/20/23 02:44 Albumin 4.6 g/dL (3.5-5.2) 11/20/23 02:44 Globulin 3.3 g/dL (1.3-4.6) 11/20/23 02:44 TSH 5.61 uIU/mL (0.27-4.20) H 11/20/23 02:44 Urine Color Yellow (Yellow) 11/20/23 02:55 Urine Appearance Cloudy (CLEAR) A 11/20/23 02:55 Urine pH 5 (5-7) 11/20/23 02:55 Ur Specific [place] 1.030 (1.005-1.030) 11/20/23 02:55 Urine Protein 1+ (Negative) H 11/20/23 02:55 Urine Glucose (UA) Norm (Normal) 11/20/23 02:55 Urine Ketones Negative (Negative) 11/20/23 02:55 Urine Blood Neg (Negative) 11/20/23 02:55 Urine Nitrate Negative (Negative) 11/20/23 02:55 Urine Bilirubin Neg (Negative) 11/20/23 02:55 Urine Urobilinogen Neg mg/dL (Negative) 11/20/23 02:55 Ur Leukocyte Esterase Negative (Negative) 11/20/23 02:55 Urine RBC 0-4 /hpf (0-2) H 11/20/23 02:55 Urine WBC 0-4 /hpf (0-5) H 11/20/23 02:55 Ur Squamous Epith Cells 0-4 /hpf (0-5) H 11/20/23 02:55 Calcium Oxalate Crystal Rare /hpf 11/20/23 02:55 Amorphous Sediment Trace /hpf 11/20/23 02:55 Urine Bacteria 2+ /hpf (NONE) H 11/20/23 02:55 Hyaline Casts 15-25 /lpf H 11/20/23 02:55 Urine Mucus 1+ /hpf 11/20/23 02:55 Salicylates < 0.3 mg/dL (3-10) L 11/20/23 02:44 Urine Opiates Screen Positive ng/mL (Negative) H 11/20/23 02:55 Acetaminophen < 5.0 ug/mL (10-30) L 11/20/23 02:44 Ur Barbiturates Screen Negative ng/mL (Negative) 11/20/23 02:55 Ur Phencyclidine Scrn Negative ng/mL (Negative) 11/20/23 02:55 Ur Amphetamines Screen Positive ng/mL (Negative) H 11/20/23 02:55 U Benzodiazepines Scrn Negative ng/mL (Negative) 11/20/23 02:55 Urine Cocaine Screen Negative ng/mL (Negative) 11/20/23 02:55 U Marijuana (THC) Screen Negative ng/mL (Negative) 11/20/23 02:55 Ethyl Alcohol 185 mg/dL (0-10) H 11/20/23 02:44 Influenza Type A Ag negative (Negative) 11/20/23 03:33 Influenza Type B Ag negative (Negative) 11/20/23 03:33 RSV Antigen Negative (Negative) 11/20/23 03:33 SARS-CoV-2 Ag (Rapid) negative (Negative) 11/20/23 03:33 EKG Data EKG 1: Computer generated interpretation: Chest X-Ray 11/20/23 02:41 IMPRESSION: No acute findings. Head CT 11/20/23 02:41 IMPRESSION: No acute intracranial abnormality. Discharge Plan Discharge Patient Disposition: Admitted As Inpatient Clinical Impression: Drug-induced psychotic disorder, COPD (chronic obstructive pulmonary disease) Condition: Stable Prescriptions: No Action promethazine 25 mg tablet 25 mg PO Q6H PRN (Reason: nausea and vomiting) Qty: 20 0RF albuterol sulfate 90 mcg/actuation HFA aerosol inhaler 2 inh INHALATION Q4H PRN (Reason: shortness of breath or wheezing) Qty: 18 0RF Unable to Assess Patient Instructions: Altered Mental Status (ED) Coding Level of Care Code ED Geotechnical Operating Engineer for [place]
[2023-11-20 03:11] LABS: ABG PCO2 47.3 mmHg (35-45); Arterial Blood Gas Hematocrit 38.2 % (37-47); Base Excess ABG -3.7 mmol/L (-2.0-2.0); Blood Gas Allen Test Pos; Blood Gas Sample Site Radial, left; Blood Gas Sample Type Arterial; Oxygen Device NC
[2023-11-20 03:12] LABS: Amphetamines Screen Urine Positive (Negative); Barbiturates Screen Urine Negative (Negative); Benzodiazepines Screen Urine Negative (Negative); Cocaine Screen Urine Negative (Negative); Opiate Screen Urine Positive (Negative); PCP Screen Urine Negative (Negative); THC Screen Urine Negative (Negative)
[2023-11-20 03:12] LABS: Ammonia 44 umol/L (11-51)
[2023-11-20 03:13] LABS: Add Urine Microscopic? YES; Bacteria Urine 2+ /hpf; Bilirubin Urine Neg (Negative); Blood Urine Neg (Negative); Glucose Urine UA Norm (Normal); Ketones Urine Negative (Negative); Leukocyte Esterase Urine Negative (Negative); Mucus Urine 1+ /hpf; Nitrate Urine Negative (Negative); Protein Urine 1+ (Negative); RBC Urine 0-4 /hpf (0-2); Squamous Epithelial Cell Urine 0-4 /hpf (0-5); Urine Appearance Cloudy (CLEAR); Urine Color Yellow (Yellow); Urobilinogen Urine Neg (Negative); WBC Urine 0-4 /hpf (0-5); pH Urine 5 (5-7)
[2023-11-20 03:13] LABS: Lactic Sepsis W/Reflex 2.6 mmol/L (0.5-2.2)
[2023-11-20 03:14] LABS: Amorphous Sediment Urine TRACE /hpf; Calcium Oxalate Crystals Urine RARE /hpf; Hyaline Casts Urine 15-25 /lpf
[2023-11-20 03:15] LABS: C Reactive Protein 13.5 mg/L (0.0-4.9)
[2023-11-20 03:21] LABS: Glucose Point of Care 59 mg/dL (70-110)
[2023-11-20 03:22] LABS: Alanine Aminotransferase 24 U/L (0-33); Albumin Level 4.6 g/dL (3.5-5.2); Alcohol Level 185 mg/dL (0-10); Alkaline Phosphatase 124 U/L (35-105); Anion Gap 19.5 (5-19); Aspartate Amino Transferase 42 U/L (0-32); Blood Urea Nitrogen 22 mg/dL (6-20); Carbon Dioxide 25 mmol/L (22-29); Chloride 102 mmol/L (98-107); Creatinine Clr Calc Pharmacy 51.4514; Globulin 3.3 g/dL (1.3-4.6); Glomerular Filtration Rate 64.5 mL/min (90-130); Glucose 60 mg/dL (65-115); Osmolality Calculated 297 mOsm/kg (285-295); Potassium 3.5 mmol/L (3.5-5.1); Sodium 143 mmol/L (136-145); Thyroid Stimulating Hormone 5.61 uIU/mL (0.27-4.20); Total Bilirubin 0.4 mg/dL (0.15-1.2); Total Protein 7.9 g/dL (6.6-8.7)
[2023-11-20 03:23] LABS: Acetaminophen < 5.0 ug/mL (10-30); Salicylate < 0.3 mg/dL (3-10)
[2023-11-20] MEDS: dextrose 10% 250 ML 1000 ML IV (03:26)
[2023-11-20 04:01] LABS: SARS Covid-2 Antigen negative (Negative)
[2023-11-20 04:03] LABS: RSV Transfer Patient (ED) Negative (Negative)
[2023-11-20 04:03] LABS: Glucose Point of Care 195 mg/dL (70-110)
[2023-11-20 04:17] LABS: Influenza A by IFA negative (Negative); Influenza B by IFA negative (Negative)
[2023-11-20 04:45] LABS: Reflex Lactate Order REFLEX LACTIC ORDERD
[2023-11-20 05:12] LABS: Glucose Point of Care 87 mg/dL (70-110)
[2023-11-20 05:41] LABS: Glucose Point of Care 82 mg/dL (70-110)
[2023-11-20 05:56] LABS: Lactic Acid level (Lactate) 2.2 mmol/L (0.5-2.2)
--- NOTE | 2023-11-20 07:38 | PC.NURSE ---
Rounding Patient is resting in bed with eyes closed. No signs of distress noted at this time. PSA has eyes on patient.
[2023-11-20 08:44] LABS: Glucose Point of Care 71 mg/dL (70-110)
[2023-11-20 08:44] LABS: Glucose Point of Care 64 mg/dL (70-110)
--- NOTE | 2023-11-20 08:44 | PC.NURSE ---
BLOOD SUGAR 71. PT REFUSES TO DRINK OR EAT
--- NOTE | 2023-11-20 09:37 | PC.PHAR ---
PT STATES TAKES MEDICATIONS BUT CAN'T TELL ME WHICH PHARMACY SHE USES.
[2023-11-20] MEDS: LORazepam 2 mg/mL INJ 10 mL MDV IVP (11:07)
[2023-11-20 11:09] LABS: Glucose Point of Care 73 mg/dL (70-110)
--- NOTE | 2023-11-20 11:34 | PC.NURSE ---
pt pulled out both IVs, pt will not listen to staff. pt throwing herself around in bed. pt went to bathroom on bedside commode, pt stated my rectum just fell out. nurse notified provider.
[2023-11-20 13:40] LABS: Glucose Point of Care 70 mg/dL (70-110)
[2023-11-20 16:45] LABS: Glucose Point of Care 64 mg/dL (70-110)
--- NOTE | 2023-11-20 16:59 | PC.NURSE ---
PT BLOOD SUGAR 64. PT REFUSING TO EAT OR DRINK.
[2023-11-20] MEDS: haloperidol inj 5 mg/mL INJ 1 mL IM (19:53)
[2023-11-20 19:58] LABS: Glucose Point of Care 71 mg/dL (70-110)
--- NOTE | 2023-11-20 20:03 | PC.NURSE ---
Obtained last glucose, results relayed to Dr Elaine.
[2023-11-20 21:40] LABS: Glucose Point of Care 89 mg/dL (70-110)
--- NOTE | 2023-11-20 21:44 | PC.NURSE ---
Report called to Cele MCCAULEY in NPU. All questions and concerns were addressed at time of report.
--- NOTE | 2023-11-20 22:03 | PC.NURSE ---
At time of transfer to NPU patient was drowsy but responsive to questions and commands, such as to stand and pivot to bed. Patient was transferred with all paperwork and belongings.
[2023-11-20 22:05] LABS: Glucose Point of Care 89 mg/dL (70-110)
[2023-11-21] VITALS: BP 131/88; PULSE 101; RESP 18; TEMP 36.4; O2SAT 95
[2023-11-21 00:17] LABS: Glucose Point of Care 78 mg/dL (70-110)
[2023-11-21 00:56] LABS: Glucose Point of Care 119 mg/dL (70-110)
[2023-11-21] MEDS: ibuprofen 600 mg Tablet PO (03:41)
[2023-11-21 04:00] VITALS: BP 138/87; PULSE 98; RESP 16; TEMP 36.1; O2SAT 97
[2023-11-21 08:00] VITALS: BP 128/87; PULSE 87; RESP 16; O2SAT 97
--- NOTE | 2023-11-21 08:40 | P.NPUHP_ITS ---
Providers/Chief Complaint 2 Admitting Physician: Paulino Perez MD Chief Complaint: MHE HPI NPU History of Present Illness Tiara Wilkins is a 58 year old female who presented to the emergency department after the police in the emergency medical response team had been contacted to the patient's home. The patient had been apparently rummaging through her house and was extremely agitated and according to the was hearing voices. The patient had received Versed and Ativan in order to calm her down and quickly became unresponsive at which point the patient was transferred to the emergency department. The patient was admitted to the neuropsychiatric unit for further evaluation and treatment. Prior to arriving on the inpatient psychiatric unit, patient had struggled with oral intake and required the addition of IV fluids. The patient had reported that she was not hearing voices but states that she had been concerned that people were in her home and were somehow attempting to harm her. She was unable to provide any significant details regarding this matter. She denied depressed mood. She denied having thoughts of hurting herself or others. The patient had a blood alcohol level of 185 and reported routine use of alcohol for an unspecified number of years. She had minimized any history of substance abuse issues. She had denied amphetamine use despite the presence of amphetamine on drug screen stating that it was from her albuterol inhaler use. Inpatient psychiatric history: She reports 1 recent hospitalization in [facility] [place] for unspecified reasons. Outpatient psychiatric history: None reported Substance abuse history: None reported, She had minimized any history of alcohol withdrawal symptoms. Medical history: COPD, lower back pain Surgical history: None Medications: Albuterol sulfate Legal history: None reported history: None Family psychiatric history: Unknown Social history: She was born in [facility] and raised by both her biological parents. She reports that she dropped out of school in the eighth grade and denied any history of learning disabilities. She denied any history of physical sexual or emotional abuse. She reports that she has been to her of 32 years. She reports that she has 4 adult age children 1 of whom lives with her currently. Meds NPU Home Medications Medication Instructions Recorded Confirmed Last Taken Type albuterol sulfate 90 mcg/actuation 2 inh inhalation Q4H PRN shortness 10/31/21 Unknown Rx aerosol inhaler of breath or wheezing #18 grams promethazine 25 mg tablet 25 mg PO Q6H PRN nausea and 10/31/21 Unknown Rx vomiting #20 tabs Unable to Assess 11/20/23 11/20/23 Unknown History Allergies Allergy/AdvReac Type Severity Reaction Status Date / Time strawberry Allergy ALGOma-Hives Verified 11/20/23 13:28 PFSH NPU 2 PFSH: Medical History COPD (chronic obstructive pulmonary disease) Social History (System 11/20/23 @ 13:28 by Makeda De La Fuente) Smoking and tobacco/nicotine status: former use of tobacco/nicotine Mental Status Exam 2 MSE Comments: Patient is an extremely poor historian. She is a thin white female who looks much older than her stated age with extremely poor hygiene. Her dentition was poor. Her gait was not tested. She had her eyes closed and was fading in and out of consciousness throughout the interview. She was alert and oriented to person place year month and day of the week. Her mood was described as tired. Her affect was odd. Her thought process was superficially linear and logical. Her thought content showed no evidence of homicidal or suicidal ideation. She did at times appear somewhat guarded and paranoid stating that people are in her house trying to harm her. She did not appear to be responding to internal stimuli. There was clear evidence of bizarre delusions. Her insight is feeble. Her judgment is impaired. Her impulse control appeared poor. Her attention and concentration were also poor. Vitals/I&O/Wt Last Vital Signs Temp 97.0 F L 11/21/23 04:00 Pulse 98 11/21/23 04:00 Resp 16 11/21/23 04:00 BP 138/87 11/21/23 04:00 Pulse Ox 97 11/21/23 04:00 O2 Del Method Room Air 11/21/23 04:00 O2 Flow Rate 2 11/20/23 18:27 Weight last 48 hrs Weight 49.895 kg Data NPU 11/20/23 02:44 11/20/23 02:44 Micro: Microbiology 11/20/23 03:09 Blood Culture - Preliminary Blood NEGATIVE TO DATE 11/20/23 03:06 Blood Culture - Preliminary Blood NEGATIVE TO DATE Microbiology 11/20/23 03:09 Blood Blood Culture - Preliminary NEGATIVE TO DATE 11/20/23 03:06 Blood Blood Culture - Preliminary NEGATIVE TO DATE A&P Assessment and plan (1) Drug-induced psychotic disorder: (2) COPD (chronic obstructive pulmonary disease): Plan 58-year-old female with history of alcohol abuse along with 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 #1.? Engage patient in individual milieu and group therapy.? #2? Encourage sober living treatment after discharge at the highest level of care to which he is willing to commit. #3??? CIWA for alcohol withdrawal #4?? TO-15 minute checks? #5?? Will attempt to gather collateral information; restart outpatient medications. Monitor blood sugar, if continued problems with oral intake, may require medical consult. Attestations NPU 2 Medical Necessity Statement*: Inpatient hospitalization is medically necessary and deemed to ?be ?the clinically appropriate intervention ?at this time.? We will monitor/initiate medications and make changes as indicated.? The patient will be in the hospital for over 2 midnights.? The patient?s likely length of stay 7-10 days. Coding Level of Care Code Acute Code for g Fwd Diagnoses Drug-induced psychotic disorder F19.959 COPD (chronic obstructive pulmonary disease) J44.9
[2023-11-21 09:11] LABS: Glucose Point of Care 80 mg/dL (70-110)
--- NOTE | 2023-11-21 09:30 | PC.OT ---
OT EVALUATION ATTEMPTED; PATIENT IS SLEEPING SOUNDLY AND DOES NOT AWAKEN; NURSING AWARE. WILL ATTEMPT EVALUATION AGAIN AT A LATER TIME
[2023-11-21 11:48] VITALS: BP 126/91; PULSE 97; RESP 16; O2SAT 98
[2023-11-21 11:49] LABS: Glucose Point of Care 80 mg/dL (70-110)
--- NOTE | 2023-11-21 12:40 | PC.NURSE ---
This RN spoke with patient's primary provider, Roma, at [facility] in [place] about patient's medical history since patient is unable to provide any information at this time. She stated that the patient has had a longstanding history of methamphetamine abuse, but that the patient has refused any kind of help and denies having an abuse problem. Patient's stated that she would test positive because of a medication that she was prescribed from the aforementioned clinic, but none would cause this. It was confirmed that the only medications patient has been prescribed is abreztri, albuterol, stool softener, claritin, lexapro, trazodone, and buspar. Roma did state that patient was prescribed diclofenac, flexeril, and prednisone at one time for spondylosis and narrowing from the L3 to L4 vertabrae as well as issues with disks in her back. This information was relayed to Dr. Perez who requested all medications be for the time being.
--- NOTE | 2023-11-21 13:15 | PC.NURSE ---
Attempted to perform assessment multiple times this morning and afternoon, but unable to do so. Patient would only rouse to touch and would say only a few words at a time. She did begin to cry and say she wanted her , but then went back to sleep. Unable to get any information from the patient at this time. Assessed the patient visually to the best of my ability.
[2023-11-21 15:11] LABS: Glucose Point of Care 87 mg/dL (70-110)
--- NOTE | 2023-11-21 15:43 | XRR_ITS ---
PROCEDURE INFORMATION: Exam: XR Left Wrist Exam date and time: 11/21/2023 4:03 PM Age: 58 years old Clinical indication: Pain; Wrist; Left; Additional info: Swelling to left wrist TECHNIQUE: Imaging protocol: Radiologic exam of the left wrist. Views: 3 or more views. COMPARISON: CR XR hand LT min 3V* [id number] 11/21/2023 4:03 PM FINDINGS: Bones/joints: Moderate osteoarthritis 1st carpometacarpal joint . Mild osteoarthritis radiocarpal joint. No acute fracture, dislocation, or aggressive osseous lesion. Soft tissues: No acute soft tissue findings. XR/XR wrist LT min 3V* [id number] IMPRESSION: No acute skeletal pathology.
--- NOTE | 2023-11-21 15:43 | XRR_ITS ---
PROCEDURE INFORMATION: Exam: XR Left Hand Exam date and time: 11/21/2023 4:03 PM Age: 58 years old Clinical indication: Pain; Hand; Left; Additional info: Swelling to left thumb TECHNIQUE: Imaging protocol: Radiologic exam of the left hand. Views: 3 or more views. COMPARISON: CR XR wrist LT min 3V* [id number] 11/21/2023 4:03 PM FINDINGS: Bones/joints: Moderate osteoarthritis 1st carpometacarpal joint. Mild osteoarthritis throughout the distal interphalangeal joints. Mild osteoarthritis in the radiocarpal joint. No acute fracture, dislocation, or aggressive osseous lesion. Soft tissues: Mild to moderate swelling at the wrist and hand. XR/XR hand LT min 3V* [id number] IMPRESSION: Mild to moderate swelling at the wrist and hand.
--- NOTE | 2023-11-21 15:47 | PC.NURSE ---
HERE TO VISIT PT AT 1500. PT WAS INFORMED THAT HER WAS HERE TO VISIT. PT WOULD NOT RESPOND TO RN AND RADIO DISC JOCKEY. PT DID NOT AROUSE TO VERBAL STIMULI BUT DID AROUSE TO SLIGHT RUB ON STERNUM. PT WOKE UP AND SAID HEY WHAT'S GOING ON. RN INFORMED PT THAT IS HERE TO VISIT AND HE CAN NOT COME TO THE ROOM PER NPU POLICY, SO IN ORDER TO VISIT SHE NEEDS TO WALK DOWN TO DAY ROOM TO VISIT. PT ATTEMPTED TO GET UP AND WAS ASSISTED BY RADIO DISC JOCKEY, PT WAS OBSERVED TO BE UNSTEADY ON FEET, RADIO DISC JOCKEY ASSISTED PT TO THE DAY ROOM WITH RN BEHIND PT IN CASE PT STUMBLED. PT WAS OBSERVED TO HAVE EXCESSIVE AMOUNT OF PERSPIRATION THAT SOAKED THROUGH PTS SCRUBS. RN ASKED STAFF TO OBTAIN BLOOD GLUCOSE. BLOOD GLUCOSE WAS 87. PT WAS THEN GIVEN AN ICEY, JUICE AND GRANOLA BAR. PT DRANK APPROXIMATELY 80 MLS OF JUICE AND ONE BITE OF GRANOLA BAR. WHEN WENT TO LEAVE UNIT HE ASKED TO SPEAK TO HER RN. PTS RN WAS ON BREAK SO THIS RN WENT TO SPEAK WITH . STATES PT HAS A BIG BUMP ON HER WRISTS AND IT LOOKS BAD. THAT ER WAS ROUGH WITH HER AND I WANT THE NURSE TO BE AWARE SO THEY CAN LOOK AT IT. I JUST NEED SOMEONE TO BE AWARE. RN ASSURED THAT THIS RN WOULD GO AND ASSESS PT AND PT WRISTS/HAND. RN WENT TO ASSESS PT ARMS/WRISTS/HANDS. RN OBSERVED DISCOLORATION TO LEFT THUMB WITH A SMALL KNOT ON THE TOP OF THUMB AREA THAT EXTENDS UP TO THE WRIST, PT STATES SHE CAN NOT MOVE HER THUMB. PT ATTEMPTED AND RN COULD NOT SEE ANY MOVEMENT. PT WAS ASKED PAIN LEVEL. PT STATES IT JUST HURTS. PT WAS UNABLE TO GIVE PAIN LEVEL.RN OFFERED PT TYLENOL BUT CLOSED EYES AND DID NOT RESPOND. NOTIFIED DR. VELAZCO OF SITUATION AND PTS LEFT HAND/THRUM/WRIST. NEW ORDERS RECEIVED TO OBTAIN XRAY OF LEFT HAND THREE VIEW AND LEFT WRIST THREE VIEW. XRAYS COMPLETED AT 1610. PT SLEPT THROUGH ALL THE X-RAYS. PT IS OBSERVED TO BE RESTING IN BED WITH EYES CLOSED WITH NO S/S OF DISTRESS OR DISCOMFORT. BASKETBALL ASSEMBLER OBTAINED VITALS AND ARE FOLLOWS: HR 90,RR 15, BP 117/75 AND SPO2 97% ON RA. SUPERVISOR PAPER TESTING WAS NOTIFIED WELL NPU SECURITY ANALYST.
[2023-11-21 16:00] VITALS: BP 117/75; PULSE 90; RESP 15; O2SAT 97
--- NOTE | 2023-11-21 16:46 | PC.NURSE ---
At approximately 0725 patient's , Eduardo Wilkins, called the unit and asked this nurse if the patient was admitted to our unit. Her was not listed on her HIPAA paperwork, so this nurse asked her if we could let him know that she was here. Patient nodded her head in agreement. The patient's then began yelling at this RN that he wanted the patient seen on a medical floor, not a psych floor. This RN remembered that in the reports that it stated the had said the patient was having hallucinations. Upon mentioning this the said she was, but that it was from her back pain. He then began yelling that he was coming to get her and take her elsewhere. When this RN told him she was on a 96 hour hold, he interrupted and yelled, I don't give a fuck what she's on, I'm coming and fucking getting her! Security (Davonte), warehouse hand (Dianne), and nurse account support manager (Hui), were all notified.
[2023-11-21] MEDS: ondansetron 4 MG Tablet PO (17:14)
[2023-11-21 20:00] VITALS: BP 129/89; PULSE 94; RESP 15; TEMP 36.9; O2SAT 95
[2023-11-21 20:41] LABS: Glucose Point of Care 98 mg/dL (70-110)
[2023-11-22] VITALS: BP 120/85; PULSE 99; RESP 12; O2SAT 96
[2023-11-22 00:09] LABS: Glucose Point of Care 102 mg/dL (70-110)
[2023-11-22 04:00] VITALS: BP 121/88; PULSE 97; RESP 13; O2SAT 98
[2023-11-22 08:00] VITALS: BP 107/64; PULSE 88; RESP 17; O2SAT 96
--- NOTE | 2023-11-22 08:22 | PC.NURSE ---
Addendum entered by Lorena Howell RN 11/22/23 09:43: SPOKE WITH PHYSICIAN ABOUT PT CURRENT UNWILLINGNESS TO EAT. PHYSICIAN ORDERED NEON ELECTRICIAN CONSULT AND DIETARY SUPPLEMENTS WITH MEALS. Original Note: PT WAS UNWILLING TO EAT BREAKFAST THIS MORNING. IT HAS BEEN REPORTED TO THIS NURSE THAT PT HAS BEEN REFUSING TO EAT THROUGHOUT STAY RESULTING IN LOW BLOOD GLUCOSE. WITH THIS CONCERN IN MIND THIS NURSE PREPARED A SUPPLEMENT SHAKE AND ADDED SOME ICE-CREAM TO THE SHAKE TO MAKE IT MORE PALATABLE. PT WAS MORE THAT WILLING TO DRINK THIS AND FINISHED THIS SHAKE AND STATED I JUST NEVER FEEL LIKE EATING MUCH. PT CURRENT NEEDS ARE MET AT THIS TIME.
--- NOTE | 2023-11-22 09:42 | PC.NURSE ---
PT CURRENTLY DENIES SI/HI/AH/VH. PT CURRENTLY DENIES ANXIETY. PT ENDORSES DEPRESSION HOWEVER, IS UNABLE TO RATE IT. PT BECAME TEARFUL AFTER LEARNING TODAY'S DATE DUE TO A FAMILY BIRTHDAY. PT AFFECT APPEARS VERY DEPRESSED AND SAD. PT WAS UNSURE ABOUT THE DATE. PT DOES CONTINUE TO APPEAR LETHARGIC HOWEVER IS MORE ARROUSABLE TO VERBAL STIMULI. PT WAS COOPERATIVE WITH ASSESSMENT AND ONLY SCORED A 1 ON THE CIWA ASSESSMENT. PT CURRENT NEEDS ARE MET AT THIS TIME.
[2023-11-22 12:00] VITALS: BP 126/84; PULSE 111; RESP 17; O2SAT 98
[2023-11-22 16:00] VITALS: BP 101/64; PULSE 97; RESP 17; O2SAT 97
--- NOTE | 2023-11-22 17:01 | P.NPUPN_ITS ---
Subjective NPU 2 Subjective: 58-year-old female with a history of alc ohol abuse and possible methamphetamine abuse admitted positive for amphetamines and alcohol with significant bizarre behavior including increased paranoia and auditory hallucinations. Patient had not been eating on the unit at all without significant prompting. She had tolerated oral Ensure but did not eat independently. She had stated that she wished to go home and appeared agitated when informed that she needed to be able to maintain self-care at minimum in order to leave here. Patient had continued to deny having used amphetamines stating that it was a positive test for her use of albuterol on a daily basis. The patient reported that she had been using alcohol. She had minimized any history of alcohol-related withdrawal. Patient had reported repeatedly that she had a lack of appetite and reported that if she ate 3 meals a day that she would become fat . Mental Status Exam 2 MSE Comments: Patient is an extremely poor historian. She is a thin white female who looks much older than her stated age with extremely poor hygiene. Her dentition was poor. Her gait was not tested. She was alert and oriented to person, place and time. The patient reports her mood as fine. Her affect was subdued and odd. Her thought process was perseverative about wanting to go home. Her thought content showed no evidence of homicidal or suicidal ideation. She did at times appear somewhat guarded and paranoid stating that people are in her house trying to harm her. She did not appear to be responding to internal stimuli. There was clear evidence of bizarre delusions. Her insight is feeble. Her judgment is impaired. Her impulse control appeared poor. Her attention and concentration were also poor. 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 #1.? Engage patient in individual milieu and group therapy.? #2? Encourage sober living treatment after discharge at the highest level of care to which he is willing to commit. #3??? CIWA for alcohol withdrawal #4?? TO-15 minute checks? #5?? Appreciate medical consult. Patient will be more closely with I/O's. Attestations NPU 2 Medical Necessity Statement*: Inpatient hospitalization is medically necessary and deemed to ?be ?the clinically appropriate intervention ?at this time.? We will monitor/initiate medications and make changes as indicated.? The patient?s likely length of stay 7-10 days. Coding Level of Care Code [facility] Diagnoses Drug-induced psychotic disorder F19.959 COPD (chronic obstructive pulmonary disease) J44.9
[2023-11-22 17:10] LABS: Glucose Point of Care 100 mg/dL (70-110)
[2023-11-22 20:00] VITALS: BP 114/78; PULSE 92; RESP 16; TEMP 36.8; O2SAT 95
--- NOTE | 2023-11-22 20:20 | PC.NURSE ---
ALTERCATION WITH PT while at the nursing station a gentleman came to the desk inquiring after his that was to go to room 271, the was notified that patient was not on the floor yet. The was seen going to the waiting area to sit down. This technical publications writer approached the and informed him that despite being on the medical floor, the rules for psychiatric patients would still apply which include visiting hours only from [id number]. The stated that he had been informed by someone on the phone that he could visit with her and stay until 2100 while on this floor. This technical publications writer apologized for the misunderstanding and reinforced that he would be able to come back tomorrow and visit during the designated visiting hour. The became agitated and verbally aggressive, raising his voice and stating This is bullshit! I have been lied to every day that she has been here about one thing or another. I was told yesterday I could come get her, showed up only to be told she can't leave. I need to see her. This technical publications writer reiterated apologetically that unfortunately he would have to come back tomorrow, and that his frustration was understood considering his stated situation. The became even louder in response stating This isn't frustrated, but if I don't see her things are going to get a lot worse than frustrated. If you think this is anything just wait for her. She is going to flip out when she gets up here and can't see me. This technical publications writer apologized again, and said that the floor staff would explain the situation to the patient as well and address any situations as they unfold. The was informed that his continued anger and agitation was not acceptable and that security was being called for the safety of everyone involved. The stated that he was leaving but would be back soon with law enforcement to get her out despite being repeatedly informed that she was on a 96 hour hold and would not be released to him. The was still cursing loudly as he got onto the elevator and as the doors were closing the hit the wall inside the elevator. Security was exiting the other elevator at the same time and was informed that the had just went down the other elevator. Security quickly went down the nearby stairs to intercept him, ensuring his departure from the building and escorted him out of the facility safely.
[2023-11-22] MEDS: sucralfate 1 gm Tablet PO (21:04)
[2023-11-22] MEDS: sodium chloride 0.9% 1,000 ML 75 ML IV (21:05)
[2023-11-22] MEDS: trazodone 50 mg Tablet PO (21:05)
[2023-11-23] VITALS: BP 98/63; PULSE 91; RESP 16; TEMP 36.5; O2SAT 99
[2023-11-23 04:00] VITALS: BP 134/85; PULSE 97; RESP 17; TEMP 36.6; O2SAT 95
[2023-11-23 05:55] LABS: Basophils % 0.6 %; Eosinophils # 0.2 10^3/uL (0.0-0.8); Eosinophils % 2.6 %; Hematocrit 39.1 % (36-47); Lymphocytes # 2.3 10^3/uL (0.8-4.8); Lymphocytes % 34.7 %; Mean Corpuscular HGB Conc 33.2 g/dL (30-55); Mean Corpuscular Volume 96.3 fl (85-98); Mean Platelet Volume 9.1 fL (7.4-10.4); Monocytes # 0.6 10^3/uL (0.2-0.9); Monocytes % 8.8 %; Nucleated Red Blood Cells % 0 %; Platelet Count 261 10^3/cmm (157-399); Red Blood Count 4.06 10^6/uL (3.85-5.65); Red Cell Distribution Width 12.2 % (12.1-15.1)
[2023-11-23 06:16] LABS: Anion Gap 13.5 (5-19); Blood Urea Nitrogen 20 mg/dL (6-20); Calcium 8.3 mg/dL (8.5-10.5); Carbon Dioxide 27 mmol/L (22-29); Chloride 104 mmol/L (98-107); Creatinine Clr Calc Pharmacy 77.1771; Glucose 109 mg/dL (65-115); Osmolality Calculated 295 mOsm/kg (285-295); Potassium 3.5 mmol/L (3.5-5.1); Sodium 141 mmol/L (136-145)
[2023-11-23 06:19] LABS: Free T4 Free Thyroxine 0.81 ng/dL (0.82-1.77)
[2023-11-23] MEDS: levoFLOXacin 750 mg Tablet PO (06:36)
[2023-11-23] MEDS: sucralfate 1 gm Tablet PO ×4 (06:36→20:25)
[2023-11-23 07:22] VITALS: BP 113/71; PULSE 90; RESP 17; TEMP 36.6; O2SAT 91
[2023-11-23] MEDS: OLANZapine 5 mg ODT PO (07:48)
[2023-11-23] MEDS: sodium chloride 0.9% 1,000 ML 75 ML IV ×2 (09:53→21:46)
[2023-11-23] MEDS: pantoprazole 40 mg SDV IVP ×2 (09:53→17:51)
--- NOTE | 2023-11-23 10:14 | P.CONIM_ITS ---
Providers/Reason For Consult 2 Consulting Physician/Specialty*: Hospitalist Reason for Consult*: Poor p.o. intake Attending Physician: Paulino Perez MD History of Present Illness History of Present Illness Tiara Wilkins is a 58 year old female who has been admitted to the psych unit for positive drug screen, she found naked in her home, she tested positive for methamphetamine, I was consulted to evaluate the patient because she has not been eating and looks dehydrated. I recommended transfer to [facility] and start IV fluids, on 11/22 patient ate most of her breakfast, she is asking consistent that she wants to go home and enjoy November 22 with her , during my interaction she is not delusional or psychotic, she seems very desperate to go home She is answering most of my questions Signs of dehydration present but improving Hemodynamically stable Seems to have hypothyroidism she has been started on low-dose levothyroxine Patient is stating that she was to eat to her failed because then she gets nauseous and vomit, she is endorsing her symptoms to GERD she does not have any signs of dysphagia Review of Systems 2 Const: Denies: fever(s) Eyes: Denies: change in vision ENMT: Denies: throat pain Card: Denies: chest pain Resp: Denies: dyspnea Medications/Allergies Home Medications Medication Instructions Recorded Confirmed Last Taken Type albuterol sulfate 90 mcg/actuation 2 inh inhalation Q4H PRN shortness 10/31/21 Unknown Rx aerosol inhaler of breath or wheezing #18 grams promethazine 25 mg tablet 25 mg PO Q6H PRN nausea and 10/31/21 Unknown Rx vomiting #20 tabs Unable to Assess 11/20/23 11/20/23 Unknown History Allergies Allergy/AdvReac Type Severity Reaction Status Date / Time strawberry Allergy ALGY-Hives Verified 11/20/23 13:28 Current Medications Generic Name Dose Route Start Last Admin Trade Name Freq PRN Reason Stop Dose Admin Dextrose 250 mls @ 1,000 mls/hr 11/20/23 03:12 11/20/23 03:42 D10w IV Infused PRN PRN Infusion HYPOGLYCEMIA Ibuprofen 600 mg 11/20/23 22:07 11/21/23 03:41 Ibuprofen 600 Mg Tablet PO 600 mg Q6H PRN Administration MODERATE PAIN Ondansetron HCl 4 mg 11/20/23 22:07 11/21/23 17:14 Ondansetron 4 Mg Tablet PO 4 mg Q6H PRN Administration NAUSEA AND VOMITING PFSH Acute 2 PFSH: Medical History COPD (chronic obstructive pulmonary disease) Social History Smoking and tobacco/nicotine status: former use of tobacco/nicotine Vitals/I&O/Wt Last Vital Signs Temp 98.4 F 11/21/23 20:00 Pulse 111 H 11/22/23 12:00 Resp 17 11/22/23 12:00 BP 126/84 11/22/23 12:00 Pulse Ox 98 11/22/23 12:00 O2 Del Method Room Air 11/22/23 04:00 O2 Flow Rate 2 11/20/23 18:27 11/22/23 11/22/23 11/22/23 06:59 14:59 22:59 Intake Total 710 / 710 Balance 710 / 710 Physical Exam 2 Narrative: Signs of dehydration present Hemodynamically stable Abdomen soft Nonfocal neuroexam GCS 15 Currently on room air Pleasant cooperative Data 11/23/23 05:45 11/23/23 05:45 A&P Assessment and plan (1) Hypothyroid: (2) Drug-induced psychotic disorder: (3) COPD (chronic obstructive pulmonary disease): (4) Anorexia: (5) Dehydration: Plan Severe dehydration related to poor p.o. intake Patient has phobia to vomiting that is why she is avoiding eating Stating that she has GERD possibly has an ulcer Stating that Protonix does not work I will like to keep her on MedSurg for at least 24 hours give her IV fluids start sucralfate along Protonix She may need outpatient EGD No acute indication Full code Drug screen positive for meth No active signs of withdrawal Patient seems depressed during my evaluation She is on 96-hour hold UTI, will request urine culture, start Levaquin as well New onset hypothyroidism start low-dose levothyroxine Consult Attestations 2 Medical Necessity Statement: Medicine team will follow along Diagnoses Hypothyroid E03.9 Drug-induced psychotic disorder F19.959 COPD (chronic obstructive pulmonary disease) J44.9 Anorexia R63.0 Dehydration E86.0
[2023-11-23 12:00] VITALS: BP 132/80; PULSE 110; RESP 18; O2SAT 95
[2023-11-23] MEDS: thiamine 100 mg Tablet PO (13:01)
--- NOTE | 2023-11-23 13:33 | P.NPUPN_ITS ---
Subjective NPU 2 Subjective: 58-year-old female with a history of alc ohol abuse and possible methamphetamine abuse admitted positive for amphetamines and alcohol with significant bizarre behavior including increased paranoia and auditory hallucinations. The patient was seen on the medical floor today as she had been transferred there to receive additional IV fluids along with attempting to have patient be encouraged to eat more as she had refused oral intake and appeared extremely lethargic. The patient had stated that she needed to go home today and reported that she would not eat when she got home and would not eat on the medical floor anymore unless she went home. Patient continued to minimize having any problems that would have led to her hospitalization. She had minimized the use of any drugs or alcohol despite the positive amphetamine on her urine screen that she attributed to her albuterol inhaler. Previous contact with the outpatient medical team had revealed that there appeared to be some concern from them that the patient may have been misusing illicit substances and the patient had simply refused this as a potential option. She was unable to describe in any clear form why she had come into the hospital despite the engineering technical writer of this note reading the affidavit and details including the patient believing that there was someone else in the home. Mental Status Exam 2 MSE Comments: Patient is an extremely poor historian. She is a thin white female who looks much older than her stated age with extremely poor hygiene. Her speech showed increase latency, normal volume and decrease in productivity. Her dentition was poor. Her gait was not tested. She was alert and oriented to person, place and time. The patient reports her mood as good Her affect was subdued and odd. Her thought process was perseverative about wanting to go home. Her thought content showed no evidence of homicidal or suicidal ideation. She was extremely guarded and paranoid but would not elaborate regarding her problems currently. There was clear evidence of bizarre delusions. Her insight is feeble. Her judgment is impaired. Her impulse control appeared poor. Her attention and concentration were also poor. 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 #1.? Engage patient in individual milieu and group therapy.? #2? Encourage sober living treatment after discharge at the highest level of care to which he is willing to commit. #3??? CIWA for alcohol withdrawal #4?? TO-15 minute checks? #5?? Will accept patient back into psychiatry unit later today. Will resume monitoring I/O's here. Supervisor Multifocal Lens hopeful that the patient will clear up to the point that she can eat, care for herself, and potentially be discharged. However, she may require forced medications as the patient remains psychotic and actively refusing any medications. She is not safe at this time to return home. Involuntary Hold Information 2 96 Hour Hold: 96 Hour Involuntary Admission: Yes 96 Hour Hold Ending Date: 11/27/23 96 Hour Hold Ending Time: 00:01 Attestations NPU 2 Medical Necessity Statement*: Inpatient hospitalization is medically necessary and deemed to ?be ?the clinically appropriate intervention ?at this time.? We will monitor/initiate medications and make changes as indicated.? The patient?s likely length of stay 7-10 days. Coding Level of Care Code Acute Code for [facility] Diagnoses Drug-induced psychotic disorder F19.959 COPD (chronic obstructive pulmonary disease) J44.9
[2023-11-23 16:55] VITALS: BP 134/67; PULSE 110; RESP 18; O2SAT 95
[2023-11-23 19:42] VITALS: BP 124/85; PULSE 90; RESP 17; TEMP 36.6; O2SAT 92
[2023-11-23] MEDS: acetaminophen 325 mg Tablet 650 MG PO (20:24)
[2023-11-23] MEDS: trazodone 50 mg Tablet PO (21:49)
[2023-11-24] VITALS: BP 110/49; PULSE 99; RESP 17; TEMP 36.7; O2SAT 94
[2023-11-24 04:00] VITALS: BP 122/72; PULSE 75; RESP 17; TEMP 36.6; O2SAT 95
[2023-11-24] MEDS: sucralfate 1 gm Tablet PO (06:24)
[2023-11-24] MEDS: levoFLOXacin 750 mg Tablet PO (06:25)
[2023-11-24] MEDS: levothyroxine 25 mcg Tablet PO (06:25)
[2023-11-24] MEDS: acetaminophen 325 mg Tablet 650 MG PO ×2 (06:27→14:12)
[2023-11-24 08:05] VITALS: BP 132/91; PULSE 100; RESP 15; TEMP 36.7; O2SAT 97
[2023-11-24] MEDS: thiamine 100 mg Tablet PO (08:23)
--- NOTE | 2023-11-24 09:39 | PC.NURSE ---
Attempted to call patient's spouse to provide an update on transfer to NPU and reiterate visiting hours and behavioral expectations while in NPU. I left my name and number and requested a return call.
[2023-11-24] MEDS: OLANZapine 5 mg ODT PO (09:45)
--- NOTE | 2023-11-24 09:48 | PC.NURSE ---
Patient arrived to unit accompanied by security and med-surg staff via wheelchair. Patient's VS were quickly obtained. Patient tearful to this nurse, stating that she doesn't want to be here, that she is missing her grandchildren (she has 17). Patient denies Si, HI, AVH, depression, and anxiety. All questions answered.
[2023-11-24 09:50] VITALS: BP 138/95; PULSE 103; RESP 16; TEMP 37.1; O2SAT 98
--- NOTE | 2023-11-24 09:57 | PC.NURSE ---
Patient anxious and tearful, administered zyprexa 5mg ODT to patient.
[2023-11-24 12:00] VITALS: BP 127/74; PULSE 97; RESP 20; TEMP 37.1; O2SAT 100
--- NOTE | 2023-11-24 13:28 | DCPLANNER ---
. Imm was given to pt and rights given and copy placed in pts file.
--- NOTE | 2023-11-24 14:19 | P.NPUDS_ITS ---
Diagnoses at Discharge Discharge Diagnosis (1) Drug-induced psychotic disorder: Status: Acute (2) COPD (chronic obstructive pulmonary disease): Status: Acute Reason for Visit Reason for Visit: MHE Brief History: History of Present Illness Tiara Wilkins is a 58 year old female who presented to the emergency department after the police in the emergency medical response team had been contacted to the patient's home. The patient had been apparently rummaging through her house and was extremely agitated and according to the was hearing voices. The patient had received Versed and Ativan in order to calm her down and quickly became unresponsive at which point the patient was transferred to the emergency department. The patient was admitted to the neuropsychiatric unit for further evaluation and treatment. Prior to arriving on the inpatient psychiatric unit, patient had struggled with oral intake and required the addition of IV fluids. The patient had reported that she was not hearing voices but states that she had been concerned that people were in her home and were somehow attempting to harm her. She was unable to provide any significant details regarding this matter. She denied depressed mood. She denied having thoughts of hurting herself or others. The patient had a blood alcohol level of 185 and reported routine use of alcohol for an unspecified number of years. She had minimized any history of substance abuse issues. She had denied amphetamine use despite the presence of amphetamine on drug screen stating that it was from her albuterol inhaler use. Inpatient psychiatric history: She reports 1 recent hospitalization in [facility] [place] for unspecified reasons. Outpatient psychiatric history: None reported Substance abuse history: None reported, She had minimized any history of alcohol withdrawal symptoms. Medical history: COPD, lower back pain Surgical history: None Medications: Albuterol sulfate Legal history: None reported history: None Family psychiatric history: Unknown Social history: She was born in [facility] and raised by both her biological parents. She reports that she dropped out of school in the eighth grade and denied any history of learning disabilities. She denied any history of physical sexual or emotional abuse. She reports that she has been to her of 32 years. She reports that she has 4 adult age children 1 of whom lives with her currently. Hospital Course Hospital Course Upon admission, the patient had refused oral intake. She had struggled with eating routinely and required supplementation including Ensure in order to keep her blood sugar within the normal limit. She had stopped eating entirely and stated that she was having problems with her stomach. She was transferred for 1 day to the medical floor where she received additional IV hydration and she successfully ate meals while supervised. She had tested positive for amphetamines and had been unable to recall the details that had led to the patient being hospitalized but that he mentally denied the use of amphetamines stating that she was not using methamphetamines but that it was a false positive from her use of albuterol on a daily basis. She did not wish for any further treatment at this time and here to improve as her nutritional status improved. ?At the time of discharge, lethality was denied and psychosis was resolving.? Mood and anxiety were well managed.? The patient endorsed a plan to avoid all drugs of abuse and follow up with the aftercare recommendations of the treatment team.? The patient was evaluated and deemed to be absent credible lethality and had achieved the maximum benefit from an inpatient hospitalization, and so was discharged. Involuntary Hold Information 96 Hour Hold: 96 Hour Involuntary Admission: Yes 96 Hour Hold Ending Date: 11/27/23 96 Hour Hold Ending Time: 00:01 Mental Status Exam MSE Comments: She is a thin white female who looks much older than her stated age with improved hygiene noted. Her speech was productive with normal rate and prosody today. Her dentition was poor. Her gait was normal. She was alert and oriented to person, place and time. The patient reports her mood as better. Her affect was brighter on discharge. Her thought process was linear and goal directed. Her thought content showed no evidence of homicidal or suicidal ideation. Recent and remote memory were grossly intact. No evidence of ideas of reference and no delusional thiking illicited, she did not appear to be responding to internal stimuli. Her insight remained poor. Her judgment was limited. Her impulse control appeared better. Her attention and concentration were improving. Discharge Data Studies Completed and Pending: Completed Studies During Hospitalization Category Date Time Status CT head wo con* [id number] Stat Cat Scan 11/20/23 02:41 Completed XR chest 1V judi ble [id number] Stat Exams 11/20/23 02:41 Completed XR hand LT min 3V * [id number] Routine Exams 11/21/23 15:43 Completed XR wrist LT min 3 V* [id number] Routine Exams 11/21/23 15:43 Completed Pending at discharge Category Date Time Status Blood Culture Sta t Lab 11/20/23 03:09 Results Urine Culture Rou bi Lab 11/22/23 18:28 Results Radiology Impressions Chest X-Ray 11/20/23 02:41 IMPRESSION: No acute findings. Head CT 11/20/23 02:41 IMPRESSION: No acute intracranial abnormality. Hand X-Ray 11/21/23 15:43 IMPRESSION: Mild to moderate swelling at the wrist and hand. Wrist X-Ray 11/21/23 15:43 IMPRESSION: No acute skeletal pathology. ADDENDUM: 11/21/23 8300 Please note that review of images discloses mild swelling at the wrist. Laboratory Results WBC 6.60 10^3/uL (3.2 9-11.43) 11/23/23 05:45 RBC 4.06 10^6/uL (3.8 5-5.65) 11/23/23 05:45 Hgb 13.00 g/dL (11.27 -16.99) 11/23/23 05:45 Hct 39.1 % (36-47) 11/23/23 05:45 MCV 96.3 fl (85-98) 11/23/23 05:45 MCH 32.0 pg (27-33) 11/23/23 05:45 MCHC 33.2 g/dL (30-55) 11/23/23 05:45 RDW 12.2 % (12.1-15.1 ) 11/23/23 05:45 Plt Count 261 10^3/cmm (157 -399) 11/23/23 05:45 MPV 9.1 fL (7.4-10.4) 11/23/23 05:45 Neut % (Auto) 53.0 % 11/23/23 05:45 Lymph % (Auto) 34.7 % 11/23/23 05:45 Mobile % (Auto) 8.8 % 11/23/23 05:45 Eos % (Auto) 2.6 % 11/23/23 05:45 Baso % (Auto) 0.6 % 11/23/23 05:45 Neut # (Auto) 3.50 10^3/uL (1.8 -7.7) 11/23/23 05:45 Lymph # (Auto) 2.3 10^3/uL (0.8- 4.8) 11/23/23 05:45 Mobile # (Auto) 0.6 10^3/uL (0.2- 0.9) 11/23/23 05:45 Eos # (Auto) 0.2 10^3/uL (0.0- 0.8) 11/23/23 05:45 Baso # (Auto) 0.0 10^3/uL (0.0- 0.1) 11/23/23 05:45 Nucleated RBC % (a uto) 0 % 11/23/23 05:45 Nucleated RBCs # 0.0 /100WBC 11/23/23 05:45 Specimen Type Arterial 11/20/23 03:00 Sample Site Radial, left 11/20/23 03:00 ABG pH 7.30 (7.35-7.45) L 11/20/23 03:00 ABG pCO2 47.3 mmHg (35-45) H 11/20/23 03:00 ABG pO2 62.0 mmHg (80.0-1 00.0) L 11/20/23 03:00 ABG HCO3 23.0 mmol/L (22-2 6) 11/20/23 03:00 ABG Base Excess -3.7 mmol/L (-2.0 -2.0) L 11/20/23 03:00 Eric Test Pos 11/20/23 03:00 Hematocrit 38.2 % (37-47) 11/20/23 03:00 O2 Delivery Device Nc 11/20/23 03:00 O2 Liters/Min 2.0 % 11/20/23 03:00 Professor In Family Studies ID [email or web address] 11/20/23 03:00 Sodium 141 mmol/L (136-1 45) 11/23/23 05:45 Potassium 3.5 mmol/L (3.5-5 .1) 11/23/23 05:45 Chloride 104 mmol/L (98-10 7) 11/23/23 05:45 Carbon Dioxide 27 mmol/L (22-29) 11/23/23 05:45 Anion Gap 13.5 (5-19) 11/23/23 05:45 BUN 20 mg/dL (6-20) 11/23/23 05:45 Creatinine 0.6 mg/dL (0.5-0. 9) 11/23/23 05:45 GFR Calculation 103.0 mL/min (90- 130) 11/23/23 05:45 Glucose 109 mg/dL (65-115 ) 11/23/23 05:45 POC Glucose 100 mg/dL (70-110 ) 11/22/23 17:07 Calculated Osmolal ity 295 mOsm/kg (285- 295) 11/23/23 05:45 Lactic Acid 2.6 mmol/L (0.5-2 .2) H 11/20/23 02:44 Lactic Acid (Sepsi s) 2.2 mmol/L (0.5-2 .2) 11/20/23 05:36 Calcium 8.3 mg/dL (8.5-10 .5) L 11/23/23 05:45 Total Bilirubin 0.4 mg/dL (0.15-1 .2) 11/20/23 02:44 AST 42 U/L (0-32) H 11/20/23 02:44 ALT 24 U/L (0-33) 11/20/23 02:44 Alkaline Phosphata se 124 U/L (35-105) H 11/20/23 02:44 Ammonia 44 umol/L (11-51) 11/20/23 02:44 C-Reactive Protein 13.5 mg/L (0.0-4. 9) H 11/20/23 02:44 Total Protein 7.9 g/dL (6.6-8.7 ) 11/20/23 02:44 Albumin 4.6 g/dL (3.5-5.2 ) 11/20/23 02:44 Globulin 3.3 g/dL (1.3-4.6 ) 11/20/23 02:44 TSH 5.61 uIU/mL (0.27 -4.20) H 11/20/23 02:44 Free T4 0.81 ng/dL (0.82- 1.77) L 11/23/23 05:45 Urine Color Yellow (Yellow) 11/20/23 02:55 Urine Appearance Cloudy (CLEAR) A 11/20/23 02:55 Urine pH 5 (5-7) 11/20/23 02:55 Ur Specific Gravit y 1.030 (1.005-1.0 30) 11/20/23 02:55 Urine Protein 1+ (Negative) H 11/20/23 02:55 Urine Glucose (UA) Norm (Normal) 11/20/23 02:55 Urine Ketones Negative (Negati ve) 11/20/23 02:55 Urine Blood Neg (Negative) 11/20/23 02:55 Urine Nitrate Negative (Negati ve) 11/20/23 02:55 Urine Bilirubin Neg (Negative) 11/20/23 02:55 Urine Urobilinogen Neg mg/dL (Negati ve) 11/20/23 02:55 Ur Leukocyte Nora ase Negative (Negati ve) 11/20/23 02:55 Urine RBC 0-4 /hpf (0-2) H 11/20/23 02:55 Urine WBC 0-4 /hpf (0-5) H 11/20/23 02:55 Ur Squamous Epith Cells 0-4 /hpf (0-5) H 11/20/23 02:55 Calcium Oxalate Cr ystal Rare /hpf 11/20/23 02:55 Amorphous Sediment Trace /hpf 11/20/23 02:55 Urine Bacteria 2+ /hpf (NONE) H 11/20/23 02:55 Hyaline Casts 15-25 /lpf H 11/20/23 02:55 Urine Mucus 1+ /hpf 11/20/23 02:55 Salicylates < 0.3 mg/dL (3-10 ) L 11/20/23 02:44 Urine Opiates Scre en Positive ng/mL (N egative) H 11/20/23 02:55 Acetaminophen < 5.0 ug/mL (10-3 0) L 11/20/23 02:44 Ur Barbiturates Sc reen Negative ng/mL (N egative) 11/20/23 02:55 Ur Phencyclidine S crn Negative ng/mL (N egative) 11/20/23 02:55 Ur Amphetamines Sc reen Positive ng/mL (N egative) H 11/20/23 02:55 U Benzodiazepines Scrn Negative ng/mL (N egative) 11/20/23 02:55 Urine Cocaine Scre en Negative ng/mL (N egative) 11/20/23 02:55 U Marijuana (THC) Screen Negative ng/mL (N egative) 11/20/23 02:55 Ethyl Alcohol 185 mg/dL (0-10) H 11/20/23 02:44 Influenza Type A A g negative (Negati ve) 11/20/23 03:33 Influenza Type B A g negative (Negati ve) 11/20/23 03:33 RSV Antigen Negative (Negati ve) 11/20/23 03:33 SARS-CoV-2 Ag (Rap id) negative (Negati ve) 11/20/23 03:33 Vitals: Last Vital Signs Temp 98.8 F 11/24/23 12:00 Pulse 97 11/24/23 12:00 Resp 20 H 11/24/23 12:00 BP 127/74 11/24/23 12:00 Pulse Ox 100 11/24/23 12:00 O2 Del Method Room Air 11/24/23 09:50 O2 Flow Rate 2 11/20/23 18:27 Discharge Plan Discharge Patient Disposition: Home Condition: Stable Prescriptions: New levothyroxine 25 mcg Tablet 25 mcg PO QAM 30 Days Qty: 30 1RF pantoprazole 40 mg Tablet,Delayed Release (Dr/Ec) 40 mg PO BID 30 Days Qty: 60 1RF Continued promethazine 25 mg tablet 25 mg PO Q6H PRN (Reason: nausea and vomiting) Qty: 20 0RF albuterol sulfate 90 mcg/actuation HFA aerosol inhaler 2 inh INHALATION Q4H PRN (Reason: shortness of breath or wheezing) Qty: 18 0RF No Action Unable to Assess Discharge Orders: Discharge Order (Routine); Ordered 11/24/23 Ordered By: Paulino Perez Referrals: [facility] [Other] - 11/30/23 1:30 pm (Establish Care with Alesia Best NP on 11/30/23 @ 1:30 pm.) Discharge Diet: Usual diet Discharge Activity: Resume usual activity Patient Instructions: Levothyroxine (By mouth) (Levothroid, Levoxyl, Synthroid, Tirosint), Pantoprazole (By mouth) (Protonix), Hypothyroidism (DC), Methamphetamine Use Disorder (DC), Altered Mental Status (ED), Opioid Safety Discharge Attestations NPU Time Spent in Discharge Care*: less than 30 min Specific Discharge Activities: Specific discharge activities: educating patient and documenting/other paperwork Coding Level of Care Code Acute Code for Chg Fwd Diagnoses Drug-induced psychotic disorder F19.959 COPD (chronic obstructive pulmonary disease) J44.9
[2023-11-24 14:35] VITALS: BP 127/74; PULSE 97; RESP 20; TEMP 37.1; O2SAT 100
== END 2023-11-24 14:57 | disposition home or self-care (01) | DRG 897 ==
LOC: ER 18:05 → NP 18:16 → MEDSURG 11-22 19:38 → NP 11-24 09:40
PROVIDERS: Emergency Medicine; Internal Medicine; Admitting Provider Psychiatry & Neurology Psychiatry; Emergency Provider Family Medicine; Visit Provider Psychiatry & Neurology Psychiatry
DX: F15.150 Other stimulant abuse with stimulant-induced psychotic disorder with delusions (principal); N39.0 Urinary tract infection, site not specified; F10.10 Alcohol abuse, uncomplicated; J44.9 Chronic obstructive pulmonary disease, unspecified; Z87.891 Personal history of nicotine dependence; M54.50 Low back pain, unspecified; E86.0 Dehydration; E03.9 Hypothyroidism, unspecified; R63.0 Anorexia; Z68.21 Body mass index [BMI] 21.0-21.9, adult; F15.151 Other stimulant abuse with stimulant-induced psychotic disorder with hallucinations
CPT/HCPCS: 36415; 36416; 36600; 70450; 71045; 73110; 73130; 80048; 80053; 80306; 80307; 81001; 82140; 82803; 82962; 83605; 84439; 84443; 85025; 86140; 87040; 87077; 87086; 87186; 87426; 87804; 87899; 93005; 96372; 96374; 96375; 97150; 97165; 99285; C9113; J1630; J2060; J3411; J7030; J7799; Q0162

== ENCOUNTER 2023-12-07 12:17 | Emergency (ER) | payer MEDICARE, SELFPAY ==
[2023-12-07 12:25] VITALS: BP 159/134; PULSE 97; TEMP 36.3; O2SAT 96
--- NOTE | 2023-12-07 12:26 | CT_ITS ---
WS: [id number] CT HEAD TECHNIQUE: Noncontrast CT of the head obtained from the skullbase to the vertex. CLINICAL INFORMATION: ams COMPARISON: CT 11/20/2023 DLP: 1037.[address] scans at [facility] use at least one of these dose optimization techniques: automated e xposure control; mA and/or kV adjustment per patient size (includes targeted exams where dose is matc hed to clinical indication); or iterative reconstruction. FINDINGS: No evidence of intracranial hemorrhage or mass effect. Ventricular system and basal cisterns are villanueva nt. No extra-axial fluid collections. No evidence of mass or mass effect. Incidental everett cisterna ma gna unchanged. Incidental cavum septum pellucidum Paranasal sinuses and mastoid air cells are well aerated. .Normal visualized soft tissues. CT/CT head wo con* [id number] IMPRESSION: 1. No evidence of intracranial hemorrhage or mass effect. 2. No acute intracranial findings.
--- NOTE | 2023-12-07 12:36 | ED_ITS ---
HPI - General Adult 2 General: Chief complaint: Altered Mental Status Stated complaint: ams Time Seen by Provider: 12/07/23 12:19 Source: patient and EMS Mode of arrival: EMS Limitations: no limitations History of Present Illness: 58-year-old female with a history of met hamphetamine use had actually seen her last week admitted her to the psych cason for polysubstance abuse states she was altered earlier today so he called EMS patient now is awake she is answering all my questions appropriately denies any SI or HI. She is diaphoretic and restless Associated symptoms: Deny chest pain, dyspnea, headache(s), nausea, rash or vomiting Review of Systems 2 Const: Denies: fever(s), chills, body aches or change in appetite ENMT: Denies: throat pain or dental pain Card: Denies: chest pain Resp: Denies: dyspnea GI: Denies: abdominal pain, nausea, vomiting or diarrhea : Denies: dysuria Musc: Denies: neck pain or back pain Skin/Breast: Denies: rash Neuro: Denies: headache(s) PFSH ED 2 PFSH: Medical History Spondylolisthesis Rectal prolapse Anxiety and depression Asthma GERD (gastroesophageal reflux disease) Arthritis COPD (chronic obstructive pulmonary disease) Surgical History History of partial hysterectomy Social History Smoking and tobacco/nicotine status: former use of tobacco/nicotine Alcohol intake: current Substance/Drug Use: never Additional social history: States she does not do drugs but was found with drugs in system Adopted: No service: No Current occupational exposures/hazards: Yes Previous occupational history: Cleaning Physical Exam 2 Const: COMMON NORMALS: no acute distress, patient oriented x3 and healthy appearing HENMT: COMMON NORMALS: normocephalic and atraumatic HEAD & SCALP: n ormocephalic and atraumatic Eye: COMMON NORMALS: Equal, round and reactive pupils present and EOMs intact bilaterally PUPIL: Yes Equal, round and reactive pupils present Neck/C-Spine: COMMON NORMALS: full ROM and supple Chest: COMMONS NORMALS: normal inspection of the chest and normal palpation of entire chest wall Resp: COMMON NORMALS: normal respiratory effort, No retractions, No use of accessory muscles and clear to auscultation bilaterally AUSCULTATION: clear to auscultation bilaterally Cardio: COMMON NORMALS: regular rate, regular rhythm and No murmurs present (Cardio) RATE: regular rate RHYTHM: regular rhythm GI: COMMON NORMALS: Normal to inspection, nondistended, normoactive bowel sounds present, Soft to palpation, non-tender and no masses PALPATION: Yes Soft to palpation Extremity: COMMON NORMALS: normal to inspection and full ROM Neuro: COMMON NORMALS: patient oriented x3, moves all extremities and no focal motor deficits Psych: COMMON NORMALS: mental status grossly normal, Normal thought process present and cooperative THOUGHT PROCESS: Normal thought process present Skin: COMMON NORMALS: no rashes or lesions noted and no wounds GENERAL SKIN EXAM: no rashes or lesions noted Course 2 Vital Signs: Vital signs: Vital Signs Temperature 97.4 F L 12/07/23 12:25 Pulse Rate 97 12/07/23 12:25 Blood Pressure 159/134 12/07/23 12:25 Pulse Oximetry 96 12/07/23 12:25 Oxygen Delivery Me thod Room Air 12/07/23 12:25 MDM - General Adult Medical Decision Making Patient presents here after altered mental status at home she had no altered mental status here she was quite anxious did give Ativan she is much improved she is answer my questions appropriately is ambulatory has no signs of stroke she did test positive for amphetamines. Blood works normal she stable for discharge at this time. Medical Records I reviewed the patient's medical records. Lab Data I reviewed the patient's lab results. 12/07/23 12:47 12/07/23 12:[address] 12/07/23 12:26 IMPRESSION: 1. No evidence of intracranial hemorrhage or mass effect. 2. No acute intracranial findings. Chest X-Ray 12/07/23 13:31 IMPRESSION: No acute cardiopulmonary abnormality. Laboratory Results WBC 8.75 10^3/uL (3.29-11.43) 12/07/23 12:47 RBC 4.20 10^6/uL (3.85-5.65) 12/07/23 12:47 Hgb 13.50 g/dL (11.27-16.99) 12/07/23 12:47 Hct 42.1 % (36-47) 12/07/23 12:47 MCV 100.2 fl (85-98) H 12/07/23 12:47 MCH 32.1 pg (27-33) 12/07/23 12:47 MCHC 32.1 g/dL (30-55) 12/07/23 12:47 RDW 12.7 % (12.1-15.1) 12/07/23 12:47 Plt Count 433 10^3/cmm (157-399) H 12/07/23 12:47 MPV 9.6 fL (7.4-10.4) 12/07/23 12:47 Neut % (Auto) 59.6 % 12/07/23 12:47 Lymph % (Auto) 29.9 % 12/07/23 12:47 Pine % (Auto) 6.2 % 12/07/23 12:47 Eos % (Auto) 3.3 % 12/07/23 12:47 Baso % (Auto) 0.7 % 12/07/23 12:47 Neut # (Auto) 5.21 10^3/uL (1.8-7.7) 12/07/23 12:47 Lymph # (Auto) 2.6 10^3/uL (0.8-4.8) 12/07/23 12:47 Pine # (Auto) 0.5 10^3/uL (0.2-0.9) 12/07/23 12:47 Eos # (Auto) 0.3 10^3/uL (0.0-0.8) 12/07/23 12:47 Baso # (Auto) 0.1 10^3/uL (0.0-0.1) 12/07/23 12:47 Nucleated RBC % (auto) 0 % 12/07/23 12:47 Nucleated RBCs # 0.0 /100WBC 12/07/23 12:47 Sodium 141 mmol/L (136-145) 12/07/23 12:47 Potassium 4.3 mmol/L (3.5-5.1) 12/07/23 12:47 Chloride 99 mmol/L (98-107) 12/07/23 12:47 Carbon Dioxide 31 mmol/L (22-29) H 12/07/23 12:47 Anion Gap 15.3 (5-19) 12/07/23 12:47 BUN 19 mg/dL (6-20) 12/07/23 12:47 Creatinine 0.8 mg/dL (0.5-0.9) 12/07/23 12:47 GFR Calculation 73.9 mL/min (90-130) L 12/07/23 12:47 Glucose 152 mg/dL (65-115) H 12/07/23 12:47 Calculated Osmolality 297 mOsm/kg (285-295) H 12/07/23 12:47 Calcium 9.3 mg/dL (8.5-10.5) 12/07/23 12:47 Total Bilirubin 0.2 mg/dL (0.15-1.2) 12/07/23 12:47 AST 32 U/L (0-32) 12/07/23 12:47 ALT 33 U/L (0-33) 12/07/23 12:47 Alkaline Phosphatase 110 U/L (35-105) H 12/07/23 12:47 Total Protein 7.3 g/dL (6.6-8.7) 12/07/23 12:47 Albumin 4.1 g/dL (3.5-5.2) 12/07/23 12:47 Globulin 3.2 g/dL (1.3-4.6) 12/07/23 12:47 Urine Color Yellow (Yellow) 12/07/23 13:39 Urine Appearance Cloudy (CLEAR) A 12/07/23 13:39 Urine pH 8 (5-7) H 12/07/23 13:39 Ur Specific [place] 1.010 (1.005-1.030) 12/07/23 13:39 Urine Protein Neg (Negative) 12/07/23 13:39 Urine Glucose (UA) Norm (Normal) 12/07/23 13:39 Urine Ketones Negative (Negative) 12/07/23 13:39 Urine Blood 3+ (Negative) H 12/07/23 13:39 Urine Nitrate Negative (Negative) 12/07/23 13:39 Urine Bilirubin Neg (Negative) 12/07/23 13:39 Urine Urobilinogen Norm mg/dL (Negative) 12/07/23 13:39 Ur Leukocyte Esterase Negative (Negative) 12/07/23 13:39 Urine RBC 0-4 /hpf (0-2) H 12/07/23 13:39 Urine WBC 0-4 /hpf (0-5) H 12/07/23 13:39 Ur Squamous Epith Cells 25-40 /hpf (0-5) H 12/07/23 13:39 Amorphous Sediment 1+ /hpf 12/07/23 13:39 Urine Bacteria 1+ /hpf (NONE) H 12/07/23 13:39 Urine Mucus 1+ /hpf 12/07/23 13:39 Salicylates 2.8 mg/dL (3-10) L 12/07/23 12:47 Urine Opiates Screen Negative ng/mL (Negative) 12/07/23 13:39 Acetaminophen < 5.0 ug/mL (10-30) L 12/07/23 12:47 Ur Barbiturates Screen Negative ng/mL (Negative) 12/07/23 13:39 Ur Phencyclidine Scrn Negative ng/mL (Negative) 12/07/23 13:39 Ur Amphetamines Screen Positive ng/mL (Negative) H 12/07/23 13:39 U Benzodiazepines Scrn Negative ng/mL (Negative) 12/07/23 13:39 Urine Cocaine Screen Negative ng/mL (Negative) 12/07/23 13:39 U Marijuana (THC) Screen Negative ng/mL (Negative) 12/07/23 13:39 Ethyl Alcohol 26 mg/dL (0-10) H 12/07/23 12:47 All radiology interpretation(s) finalized by discharge EKG Data EKG 1: I personally reviewed and interpreted this EKG as follows: EKG interpretation date: 12/07/23 EKG interpretation time: 13:41 Interpretation: nsr hr [address] or t wave abnormalities qrs 75 qtc 424 Computer generated interpretation: Head CT 12/07/23 12:26 IMPRESSION: 1. No evidence of intracranial hemorrhage or mass effect. 2. No acute intracranial findings. Chest X-Ray 12/07/23 13:31 IMPRESSION: No acute cardiopulmonary abnormality. Discharge Plan Discharge Patient Disposition: Home Clinical Impression: Anxiety attack Condition: Stable Prescriptions: No Action Breztri Aerosphere 160-9-4.8 mcg/actuation HFA aerosol inhaler 2 inh inhalation BID loratadine 10 mg tablet 10 mg PO DAILY triamcinolone acetonide 0.1 % cream 1 applic topical TID albuterol sulfate 2.5 mg /3 mL (0.083 %) solution for nebulization 2.5 mg inhalation Q4H PRN (Reason: Shortness Of Breath) albuterol sulfate 90 mcg/actuation HFA aerosol inhaler 2 inh INHALATION Q4H PRN (Reason: shortness of breath or wheezing) Qty: 18 0RF buspirone 10 mg tablet 5 mg PO BID Qty: 30 0RF cyclobenzaprine 10 mg tablet 10 mg PO TID Qty: 30 0RF escitalopram oxalate 20 mg tablet 20 mg PO DAILY Qty: 30 0RF metoprolol tartrate 25 mg tablet 12.5 mg PO BID Qty: 30 0RF trazodone 50 mg tablet 50 mg PO .hs Qty: 30 0RF promethazine 25 mg tablet 25 mg PO Q6H PRN (Reason: nausea and vomiting) Qty: 20 0RF levothyroxine 25 mcg Tablet 25 mcg PO QAM 30 Days Qty: 30 1RF pantoprazole 40 mg tablet,delayed release (DR/EC) 40 mg PO BID diclofenac sodium 75 mg tablet,delayed release (DR/EC) 75 mg PO DAILY Discharge Orders: Discharge ED (Routine); Ordered 12/07/23 Ordered By: Cornelius Elaine Referrals: Alesia Best NUCLEAR MEDICINE PET CT TECHNOLOGIST [Primary Care Provider] - Discharge Diet: Advance as tolerated Discharge Activity: Resume usual activity Patient Instructions: Altered Mental Status (ED) Coding Level of Care Code ED Technology Project Manager for [place]agan
[2023-12-07] MEDS: LORazepam 2 mg/mL INJ 1 mL 1 MG IVP (12:43)
[2023-12-07 13:00] VITALS: BP 93/66; PULSE 109; O2SAT 96
[2023-12-07 13:06] LABS: Basophils # 0.1 10^3/uL (0.0-0.1); Basophils % 0.7 %; Eosinophils # 0.3 10^3/uL (0.0-0.8); Eosinophils % 3.3 %; Hematocrit 42.1 % (36-47); Lymphocytes # 2.6 10^3/uL (0.8-4.8); Lymphocytes % 29.9 %; Mean Corpuscular HGB Conc 32.1 g/dL (30-55); Mean Corpuscular Hemoglobin 32.1 pg (27-33); Mean Corpuscular Volume 100.2 fl (85-98); Mean Platelet Volume 9.6 fL (7.4-10.4); Monocytes # 0.5 10^3/uL (0.2-0.9); Monocytes % 6.2 %; Neutrophils # 5.21 10^3/uL (1.8-7.7); Neutrophils % 59.6 %; Nucleated Red Blood Cells % 0 %; Platelet Count 433 10^3/cmm (157-399); Red Cell Distribution Width 12.7 % (12.1-15.1); White Blood Count 8.75 10^3/uL (3.29-11.43)
--- NOTE | 2023-12-07 13:16 | PC.PHAR ---
PT VERIFIED MEDICATIONS BUT PTS' FAMILY STATES PT UNABLE TO PICK MEDICATIONS UP DUE TO PT HAS MEDICARE AND NOT MEDICARE D. FAMILY CAN'T AFFORD TO PATIENT ACCOUNTS MANAGER ANY OF HER MEDICATIONS-COTTON OUT OF POCKET.
[2023-12-07 13:24] LABS: Alanine Aminotransferase 33 U/L (0-33); Albumin Level 4.1 g/dL (3.5-5.2); Alcohol Level 26 mg/dL (0-10); Alkaline Phosphatase 110 U/L (35-105); Anion Gap 15.3 (5-19); Aspartate Amino Transferase 32 U/L (0-32); Blood Urea Nitrogen 19 mg/dL (6-20); Calcium 9.3 mg/dL (8.5-10.5); Carbon Dioxide 31 mmol/L (22-29); Chloride 99 mmol/L (98-107); Globulin 3.2 g/dL (1.3-4.6); Glomerular Filtration Rate 73.9 mL/min (90-130); Glucose 152 mg/dL (65-115); Osmolality Calculated 297 mOsm/kg (285-295); Potassium 4.3 mmol/L (3.5-5.1); Salicylate 2.8 mg/dL (3-10); Sodium 141 mmol/L (136-145); Total Bilirubin 0.2 mg/dL (0.15-1.2); Total Protein 7.3 g/dL (6.6-8.7)
[2023-12-07 13:26] LABS: Acetaminophen < 5.0 ug/mL (10-30)
--- NOTE | 2023-12-07 13:31 | XRR_ITS ---
PROCEDURE INFORMATION: Exam: XR Chest Exam date and time: 12/07/2023 1:52 PM Age: 58 years old Clinical indication: Other: AMS TECHNIQUE: Imaging protocol: Radiologic exam of the chest. Views: 1 view. COMPARISON: CR XR ribs LT mn 3V w CXR1V [id number] 12/05/2021 6:06 PM FINDINGS: Tubes, catheters and devices: Overlying monitor leads. Lungs: Unremarkable. No consolidation. Pleural spaces: Unremarkable. No pleural effusion. No pneumothorax. Heart/Mediastinum: Unremarkable. No cardiomegaly. Bones/joints: Visualized osseous structures show no acute abnormality. Minimal thoracic scoliosis. Other findings: No significant change with prior exam. XR/XR chest 1V portable [id number] IMPRESSION: No acute cardiopulmonary abnormality.
--- NOTE | 2023-12-07 13:31 | ECG_ITS ---
[facility] Test Date: 2023-12-07 Pat Name: Tiara Wilkins Department: Room: Gender: Female Court Bailiff: : 1965 Requested By: Cornelius Elaine Order Number: [id number] You MD: Carter Milan M.D. Measurements Intervals [place] Rate: 87 P: 75 NE: 121 QRS: 41 QRSD: 75 T: 72 QT: 379 QTc: 458 Interpretive Statements SINUS RHYTHM WITH SINUS ARRHYTHMIA SEPTAL MYOCARDIAL INFARCTION , OF INDETERMINATE AGE [40+ ms Q WAVE IN V1/V2] Compared to ECG 05/17/2017 00:50:02 No significant changes Electronically Signed On 12-07-2023 22:22:26 CDT by Carter Milan M.D. [email or web address]
[2023-12-07] MEDS: sodium chloride 0.9% 1,000 ML 999 ML IV (13:34)
[2023-12-07 14:00] VITALS: PULSE 99; O2SAT 99
[2023-12-07 14:10] LABS: Add Urine Microscopic? YES; Amorphous Sediment Urine 1+ /hpf; Bacteria Urine 1+ /hpf; Bilirubin Urine Neg (Negative); Blood Urine 3+ (Negative); Glucose Urine UA Norm (Normal); Ketones Urine Negative (Negative); Leukocyte Esterase Urine Negative (Negative); Mucus Urine 1+ /hpf; Nitrate Urine Negative (Negative); Protein Urine Neg (Negative); RBC Urine 0-4 /hpf (0-2); Squamous Epithelial Cell Urine 25-40 /hpf (0-5); Urine Appearance Cloudy (CLEAR); Urine Color Yellow (Yellow); Urobilinogen Urine Norm (Negative); WBC Urine 0-4 /hpf (0-5); pH Urine 8 (5-7)
[2023-12-07 14:11] LABS: Amphetamines Screen Urine Positive (Negative); Barbiturates Screen Urine Negative (Negative); Benzodiazepines Screen Urine Negative (Negative); Cocaine Screen Urine Negative (Negative); Opiate Screen Urine Negative (Negative); PCP Screen Urine Negative (Negative); THC Screen Urine Negative (Negative)
--- NOTE | 2023-12-07 14:45 | PC.NURSE ---
WHEN THIS NURSE WENT TO DISCHARGE PT, PT FAMILY WAS UPSET WITH DISCHARGE AND STATES WE ARE JUST GOING TO GO SOMEWHERE ELSE WHERE SHE CAN ACTUALLY GET HELP. PT AND FAMILY SIGNED DISCHARGE INSTRUCTIONS AND THIS NURSE WHEELED PT OUT. PT STOPPED THIS NURSE BEFORE GETTING PT TO VEHICLE AND STATED SHE CAN WALK THE REST OF THE WAY TO THE TRUCK. THIS NURSE OFFERED TO HELP, BUT FAMILY REFUSED.
[2023-12-07 14:59] VITALS: BP 132/88; PULSE 103; O2SAT 98
== END 2023-12-07 15:04 | disposition home or self-care (01) ==
PROVIDERS: Emergency Provider Emergency Medicine
DX: F41.9 Anxiety disorder, unspecified (principal); J44.9 Chronic obstructive pulmonary disease, unspecified; Z87.891 Personal history of nicotine dependence
CPT/HCPCS: 36415; 70450; 71045; 80053; 80306; 80307; 81001; 85025; 93005; 96361; 96374; 99285; J2060; J7030